=== PATIENT | male | born 1945 | race Caucasian/White ===

== ENCOUNTER 2016-11-09 10:37 | Inpatient (IN) | payer MEDICARE ==
[2016-11-09] MEDS ORDERED: Sodium Chloride 0.9% 10 ML Syringe FLUSH PRN (10:39)
[2016-11-09] MEDS ORDERED: Aspirin 81 MG Tab.Chew PO ONE (10:39)
[2016-11-09] MEDS ORDERED: Sodium Chloride 0.9% 2.5 ML Syringe FLUSH PRN (10:39)
[2016-11-09] MEDS ORDERED: Famotidine 20 MG/2 ML SDV IVPUSH ONE (10:39)
[2016-11-09] MEDS ORDERED: Sodium Chloride 0.9% 1,000 ML IV ONE (10:41)
--- NOTE | 2016-11-09 10:41 | EDM.PDOC ---
ED HPI GENERAL MEDICAL PROBLEM - General Stated Complaint: OXYGEN NEEDED Time Seen by Provider: 11/09/16 10:41 Source of Information: Reports: Patient History Limitations: Reports: No Limitations - History of Present Illness INITIAL COMMENTS - FREE TEXT/NARRATIVE: HISTORY AND PHYSICAL: []71-year-old male presenting with pressure to his chest and shortness of breath for the last 2-3 days. History of Present Illness: []2-3 days patient has felt short of breath even increasing. He has been on oxygen at home at 4 L. He has had pneumonia in the past and feels that's what is happening now. He is speaking in full sentences. Slightly diaphoretic and O2 at home at 4L. SAO2 is 80% when he arrived. He has history of COPD, pneumonia. History of congestive heart failure. 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 Past medical history: As per history of present illness and as reviewed below otherwise noncontributory. Surgical history: As per history of present illness and as reviewed below otherwise noncontributory. Social history: No reported history of drug or alcohol abuse. Family history: As per history of present illness and as reviewed below otherwise noncontributory. Physical exam: Alert and oriented speaking in full sentences. Coughing up copious amounts of phlegm . HEENT: Atraumatic, normocehpalic, pupils reactive, negative for conjunctival pallor or scleral icterus, mucous membranes moist, throat clear, neck supple, nontender, trachea midline. Lungs: Coarse to auscultation, breath sounds equal bilaterally, very diminished . chest tender "from coughing". Heart: S1S2, regular, negative for clicks, rubs, or JVD. Abdomen: Soft, nondistended, nontender. Negative for masses or hepatossplenmegaly. Negative for costovertebral tenderness. Pelvis: Stable nontender. Genitourinary: Deferred. Rectal: Deferred Extremities: Atraumatic, negative for cords or calf pain. No peripheral edema. Neurovascular unremarkable. Neuro: Awake, alert, oriented. Cranial nerves II through XII unremarkable. Cerebellum unremarkable. Motor and sensory unremarkable throughout. Exam nonfocal. Discussed with patient his hypoxemia the pneumonia diagnosis and plan for admission he is agreeable to this course of action Have discussed this case with Dr. Estrada who has accepted this patient for observation Diagnostics: [Chest pain protocol ] Therapeutics: [DuoNeb] Impression: [Right-sided perihilar pneumonia Hypoxemia] Plan: []Admit Definitive disposition and diagnosis as appropriate pending reevaluation and review of above. Onset: Gradual Duration: Day(s): (2-3), Getting Worse, Heavy Location: Reports: Chest Quality: Reports: Pressure Severity: Moderate - Related Data Allergies Allergy/AdvReac Type Severity Reaction Status Date / Time morphine Allergy Hives Verified 11/09/16 10:44 Penicillins Allergy Hives Verified 11/09/16 10:44 Home Meds: Home Meds Cephalexin 500 mg PO QID 11/09/16 [History] Furosemide 40 mg PO DAILY 11/09/16 [History] Lisinopril 10 mg PO DAILY 11/09/16 [History] QUEtiapine Fumarate [Quetiapine Fumarate] 200 mg PO DAILY 11/09/16 [History] Tamsulosin [Flomax] 0.4 mg PO ONETIME 11/09/16 [History] ED ROS GENERAL - Review of Systems Review Of Systems: ROS reveals no pertinent complaints other than HPI. ED EXAM, GENERAL - Physical Exam Exam: See Below (see dictation) EKG INTERPRETATION EKG Date: 11/09/16 Rhythm: NSR Comparison: NA - No Prior EKG Course - Vital Signs Last Recorded V/S: Last Vital Signs Temp 36.4 C 11/09/16 10:48 Pulse 70 11/09/16 11:03 Resp 18 11/09/16 11:03 BP 133/67 11/09/16 11:03 Pulse Ox 95 11/09/16 11:03 - Orders/Labs/Meds Orders: Active Orders 24 hr Category Date Time Status Cardiac Monitoring [RC] . DIRECTED Care 11/09/16 10:39 Active EKG Documentation Completion [RC] STAT Care 11/09/16 10:39 Active Oxygen Therapy [RC] ASDIRECTED Care 11/09/16 10:39 Active RT Aerosol Therapy [RC] ASDIRECTED Care 11/09/16 11:05 Active Chest 1V Frontal [CR] Stat Exams 11/09/16 10:39 Taken B-TYPE NATRIURETIC PEPTIDE,BNP [CHEM] Stat Lab 11/09/16 11:30 Ordered UA W/MICROSCOPIC [URIN] Stat Lab 11/09/16 10:39 Uncollected Sodium Chloride 0.9% [Normal Saline] 1,000 ml Med 11/09/16 10:41 Active IV STAT Sodium Chloride 0.9% [Saline Flush] Med 11/09/16 10:39 Active 10 ml FLUSH ASDIRECTED PRN Sodium Chloride 0.9% [Saline Flush] Med 11/09/16 10:39 Active 2.5 ml FLUSH ASDIRECTED PRN Saline Lock Insert [OM.PC] Stat Oth 11/09/16 10:39 Ordered Medication Orders Sodium Chloride (Normal Saline) 1,000 mls @ 999 mls/hr IV STAT ONE Stop: 11/09/16 11:41 Last Admin: 11/09/16 10:56 Dose: 999 mls/hr Sodium Chloride (Saline Flush) 10 ml FLUSH ASDIRECTED PRN PRN Reason: Keep Vein Open Last Admin: 11/09/16 10:56 Dose: 10 ml Sodium Chloride (Saline Flush) 2.5 ml FLUSH ASDIRECTED PRN PRN Reason: Keep Vein Open Last Admin: 11/09/16 10:56 Dose: 2.5 ml Labs: Laboratory Tests 11/09/16 11/09/16 11/09/16 Range/Units 10:35 10:35 10:35 WBC 9.88 (4.0-11.0) K/uL RBC 4.87 (4.50-5.90) M/uL Hgb 15.6 (13.0-17.0) g/dL Hct 47.4 (38.0-50.0) % MCV 97.3 (80.0-98.0) fL MCH 32.0 (27.0-32.0) pg MCHC 32.9 (31.0-37.0) g/dL RDW Std Deviation 52.2 (28.0-62.0) fl RDW Coeff of Gregory 15 (11.0-15.0) % Plt Count 178 (150-400) K/uL MPV 10.80 (7.40-12.00) fL Neut % (Auto) 78.5 (48.0-80.0) % Lymph % (Auto) 11.7 L (16.0-40.0) % Kleberg % (Auto) 8.6 (0.0-15.0) % Eos % (Auto) 0.9 (0.0-7.0) % Baso % (Auto) 0.3 (0.0-1.5) % Neut # (Auto) 7.8 H (1.4-5.7) K/uL Lymph # (Auto) 1.2 (0.6-2.4) K/uL Kleberg # (Auto) 0.9 H (0.0-0.8) K/uL Eos # (Auto) 0.1 (0.0-0.7) K/uL Baso # (Auto) 0.0 (0.0-0.1) K/uL Nucleated RBC % 0.0 /100WBC Nucleated RBCs # 0 K/uL Sodium 137 (136-146) mmol/L Potassium 4.4 (3.5-5.1) mmol/L Chloride 99 (98-110) mmol/L Carbon Dioxide 30 (21-31) mmol/L BUN 13 (6.0-23.0) mg/dL Creatinine 1.0 (0.6-1.5) mg/dL Est Cr Clr Drug Dosing 71.99 mL/min Estimated GFR (MDRD) > 60.0 ml/min Glucose 112 H (60-110) mg/dL Calcium 8.7 L (8.8-10.8) mg/dL Total Bilirubin 0.5 (0.1-1.5) mg/dL AST 21 (5-40) IU/L ALT 19 (8-54) IU/L Alkaline Phosphatase 79 (40-150) Troponin I < 0.10 (0.0-0.29) NG/ML Total Protein 7.5 (6.0-8.0) g/dL Albumin 4.1 (3.4-4.8) g/dL Globulin 3.4 (2.0-3.5) g/dL Albumin/Globulin Ratio 1.2 L (1.3-2.8) Amylase 50 (10-90) U/L Lipase 13 (7-80) U/L Meds: Medications Generic Name Dose Route Start Last Admin Trade Name Freq PRN Reason Stop Dose Admin Sodium Chloride 1,000 mls @ 999 mls/hr 11/09/16 10:41 11/09/16 10:56 Normal Saline IV 11/09/16 11:41 999 mls/hr STAT ONE Administration Sodium Chloride 10 ml 11/09/16 10:39 11/09/16 10:56 Saline Flush FLUSH 10 ml ASDIRECTED PRN Administration Keep Vein Open Sodium Chloride 2.5 ml 11/09/16 10:39 11/09/16 10:56 Saline Flush FLUSH 2.5 ml ASDIRECTED PRN Administration Keep Vein Open Discontinued Medications Generic Name Dose Route Start Last Admin Trade Name Katie PRN Reason Stop Dose Admin Albuterol/Ipratropium 3 ml 11/09/16 11:05 11/09/16 11:13 Duoneb 3.0-0.5 Mg/3 Ml NEB 11/09/16 11:06 3 ml ONETIME ONE Administration Aspirin 324 mg 11/09/16 10:39 11/09/16 10:57 Aspirin PO 11/09/16 10:40 324 mg ONETIME ONE Administration Famotidine 20 mg 11/09/16 10:39 11/09/16 10:56 Pepcid IVPUSH 11/09/16 10:40 20 mg ONETIME ONE Administration Departure - Departure Time of Disposition: 11:50 Disposition: Refer to Observation Condition: Good Clinical Impression: Hypoxemia - Discharge Information Instructions: Shortness of Breath, [id number] - My Orders Last 24 Hours: My Active Orders 11/09/16 10:39 Cardiac Monitoring [RC] . DIRECTED EKG Documentation Completion [RC] STAT Oxygen Therapy [RC] ASDIRECTED Chest 1V Frontal [CR] Stat UA W/MICROSCOPIC [URIN] Stat Sodium Chloride 0.9% [Saline Flush] 10 ml FLUSH ASDIRECTED PRN Sodium Chloride 0.9% [Saline Flush] 2.5 ml FLUSH ASDIRECTED PRN Saline Lock Insert [OM.PC] Stat 11/09/16 10:41 Sodium Chloride 0.9% [Normal Saline] 1,000 ml IV STAT 11/09/16 11:05 RT Aerosol Therapy [RC] ASDIRECTED 11/09/16 11:30 B-TYPE NATRIURETIC PEPTIDE,BNP [CHEM] Stat - Assessment/Plan Last 24 Hours: My Active Orders 11/09/16 10:39 Cardiac Monitoring [RC] . DIRECTED EKG Documentation Completion [RC] STAT Oxygen Therapy [RC] ASDIRECTED Chest 1V Frontal [CR] Stat UA W/MICROSCOPIC [URIN] Stat Sodium Chloride 0.9% [Saline Flush] 10 ml FLUSH ASDIRECTED PRN Sodium Chloride 0.9% [Saline Flush] 2.5 ml FLUSH ASDIRECTED PRN Saline Lock Insert [OM.PC] Stat 11/09/16 10:41 Sodium Chloride 0.9% [Normal Saline] 1,000 ml IV STAT 11/09/16 11:05 RT Aerosol Therapy [RC] ASDIRECTED 11/09/16 11:30 B-TYPE NATRIURETIC PEPTIDE,BNP [CHEM] Stat
[2016-11-09] MEDS ORDERED: Albuterol/Ipratropium 3.0-0.5 MG/3 ML Neb Soln NEB ONE (11:05)
[2016-11-09 11:20] LABS: CHLORIDE,CL 99 mmol/L (98-110); SODIUM,NA 137 mmol/L (136-146)
[2016-11-09] MEDS ORDERED: Azithromycin 500 MG in Sodium Chloride 0.9% 250 ML IV ONE (11:33)
[2016-11-09] MEDS ORDERED: Levofloxacin/Dextrose 5%-Water 750 MG in Premix Bag 1 BAG IV ONE (11:38)
[2016-11-09] MEDS ORDERED: Azithromycin 250 MG Tab PO ONE (11:46)
--- NOTE | 2016-11-09 11:59 | CR ---
Portable chest There is mild cardio megaly. There is vascular engorgement today compared to prior examination of Se ptember [id number]. There may be a small left pleural effusion. Impression: Cardiomegaly with vascular encouragement and likely pleural effusion consistent with con gestive heart failure
[2016-11-09] MEDS ORDERED: Albuterol/Ipratropium 3.0-0.5 MG/3 ML Neb Soln NEB PRN (12:05)
[2016-11-09] MEDS ORDERED: Temazepam 15 MG Cap PO PRN (12:05)
[2016-11-09] MEDS ORDERED: Morphine 2 MG/ML Syringe IVPUSH PRN (12:05)
[2016-11-09] MEDS ORDERED: oxyCODONE 5 MG Tab PO PRN (12:05)
[2016-11-09] MEDS ORDERED: Acetaminophen 325 MG Tab PO PRN (12:05)
[2016-11-09] MEDS ORDERED: Ondansetron 4 MG Tab.DIS PO PRN (12:05)
[2016-11-09] MEDS ORDERED: Docusate Sodium 100 MG Cap PO PRN (12:05)
[2016-11-09] MEDS ORDERED: Tamsulosin 0.4 MG Cap.ER PO SCH (12:15)
[2016-11-09] MEDS ORDERED: Levofloxacin/Dextrose 5%-Water 500 MG in Premix Bag 1 BAG IV SCH (12:15)
[2016-11-09] MEDS: Nicotine 21 MG/24 Hr Patch TRDERM SCH (13:52)
[2016-11-09] MEDS ORDERED: Levofloxacin/Dextrose 5%-Water 750 MG in Premix Bag 1 BAG IV SCH (13:53)
[2016-11-09] MEDS: Sodium Chloride 0.9% 1,000 ML IV SCH (14:35)
--- NOTE | 2016-11-09 18:34 | PCM.HP ---
<Hong Sullivan Z - Last Filed: 11/09/16 19:13> H&P History of Present Illness - General Date of Service: 11/09/16 Admit Problem/Dx: Admission Diagnosis/Problem Admission Diagnosis/Problem Hypoxemia - History of Present Illness Initial Comments - Free Text/Narative: 72-year-old gentleman who is presenting secondary to acute shortness of breath for the past couple of days. Patient states that he is having further difficulties in terms of breathing he is on home oxygen 4 L. He thought that he was getting slightly feverish throughout the day and became worried as he has had a past medical history of pneumonia . Currently assessing the patient at the present moment he did not look to be in any acute distress. However, he did insist that from a respiratory dysfunction he felt it was as if he was getting another pneumonia. He states that he does have pneumonia at least once a year. At his previous bout of pneumonia resulted in a MRSA infection. He does have a past medical history of chronic obstructive pulmonary disease or which she is on long-term inhaler. Patient also has a history of congestive heart failure however he is not fluid retaining at the present moment. Patient is afebrile, normotensive, not tachycardic. She is not complaining of any nausea vomiting diarrhea or constipation Onset of Symptoms: Reports: Gradual - Related Data Allergies/Adverse Reactions: Allergies Allergy/AdvReac Type Severity Reaction Status Date / Time morphine Allergy Hives Verified 11/09/16 10:44 Penicillins Allergy Hives Verified 11/09/16 10:44 Home Medications: Home Meds Albuterol [IJD: Ventolin HFA] 2 inh IH Q4H PRN 11/09/16 [History] Aspirin 325 mg PO DAILY 11/09/16 [History] Budesonide/Formoterol [Symbicort 160-4.5 MCG] 2 inh IH BID 11/09/16 [History] Furosemide 60 mg PO DAILY 11/09/16 [History] Lisinopril 10 mg PO DAILY 11/09/16 [History] QUEtiapine Fumarate [Quetiapine Fumarate] 200 mg PO BEDTIME 11/09/16 [History] Tamsulosin [Flomax] 0.4 mg PO DAILY 11/09/16 [History] Past Medical History Cardiovascular History: Reports: Heart Failure, Hypertension Respiratory History: Reports: COPD Gastrointestinal History: Reports: Other (See Below) Other Gastrointestinal History: Appendicitis Neurological History: Reports: Brain Injury - Past Surgical History GI Surgical History: Reports: Other (See Below) Other GI Surgeries/Procedures: Appendectomy Social & Family History - Family History HEENT: Reports: Cataract Cardiac: Reports: Other (See Below) Other Cardiac Family History: stroke Respiratory: Reports: COPD Musculoskeletal: Reports: Arthritis Neurological: Reports: TIA Endocrine/Metabolic: Reports: Diabetes, type II - Tobacco Use Smoking Status *Q: Current Every Day Smoker Years of Tobacco use: 60 Packs/Tins Daily: 0.2 - Caffeine Use Caffeine Use: Reports: Soda - Recreational Drug Use Recreational Drug Use: No H&P Review of Systems - Review of Systems: Review Of Systems: ROS reveals no pertinent complaints other than HPI. Exam - Exam Exam: See Below - Vital Signs Vital Signs: Last Vital Signs Temp 36.2 C 11/09/16 16:00 Pulse 77 11/09/16 16:00 Resp 20 11/09/16 16:00 BP 149/68 H 11/09/16 16:00 Pulse Ox 94 L 11/09/16 16:00 Weight: 115.921 kg - Patient Data Lab Results Last 24 hrs: Laboratory Results - last 24 hr 11/09/16 11/09/16 Range/Units 11:50 14:50 Lactate 0.9 (0.20-2.00) mmol/L Urine Color YELLOW Urine Appearance CLEAR Urine pH 6.0 (5.0-8.0) Ur Specific [place] >= 1.030 (1.001-1.035) Urine Protein NEGATIVE (NEGATIVE) mg/dL Urine Glucose (UA) NEGATIVE (NEGATIVE) mg/dL Urine Ketones NEGATIVE (NEGATIVE) mg/dL Urine Occult Blood NEGATIVE (NEGATIVE) Urine Nitrite NEGATIVE (NEGATIVE) Urine Bilirubin NEGATIVE (NEGATIVE) Urine Urobilinogen 0.2 (<2.0) EU/dL Ur Leukocyte Esterase NEGATIVE (NEGATIVE) Urine RBC 0-1 (0-2/HPF) Urine WBC 1-3 (0-5/HPF) Ur Epithelial Cells OCCASIONAL (NONE-FEW) Urine Bacteria FEW (NEGATIVE) Urine Mucus LIGHT (NONE-MOD) Result Diagrams: 11/09/16 10:35 11/09/16 10:35 Loi Results Last 24 hrs: Microbiology 11/09/16 12:32 Gram Stain - Final Sputum - Expectorated 11/09/16 12:00 Anaerobic Blood Culture - Final Blood - Venous - Lab Draw *Q Meaningful Use (ADM) - VTE *Q VTE Criteria *Q: - Stroke *Q Stroke Criteria *Q: - AMI *Q AMI Criteria *Q: Problem List Initiated/Reviewed/Updated: Yes Orders Last 24hrs: Active Orders 24 hr Category Date Time Status Patient Status [ADT] Routine ADT 11/09/16 12:05 Active Antiembolic Devices [RC] PER UNIT ROUTINE Care 11/09/16 12:08 Active Overnight Pulse Oximetry [RC] Click To Edit Care 11/09/16 12:50 Active Oxygen Therapy [RC] PRN Care 11/09/16 12:05 Active RT Aerosol Therapy [RC] ASDIRECTED Care 11/09/16 12:11 Active RT Aerosol Therapy [RC] ASDIRECTED Care 11/09/16 18:13 Active Up With Assistance [RC] ASDIRECTED Care 11/09/16 12:05 Active VTE/DVT Education [RC] PER UNIT ROUTINE Care 11/09/16 12:05 Active Vaccines to be Administered [RC] PER UNIT ROUTINE Care 11/09/16 12:11 Active Vital Signs [RC] Q4H Care 11/09/16 12:05 Active 2 Gram Sodium Diet [DIET] Diet 11/09/16 Dinner Active CBC WITH AUTO DIFF [HEME] AM Lab 11/10/16 05:11 Ordered COMPREHENSIVE METABOLIC PN,CMP [CHEM] AM Lab 11/10/16 05:11 Ordered CULTURE SPUTUM + SMEAR [RM] Routine Lab 11/09/16 12:32 Results Acetaminophen [Tylenol] Med 11/09/16 12:05 Active 650 mg PO Q4H PRN Albuterol/Ipratropium [DuoNeb 3.0-0.5 MG/3 ML] Med 11/09/16 18:00 Active 3 ml NEB Q4HRRT Budesonide [Pulmicort] Med 11/09/16 21:00 Ordered 0.5 mg NEB BIDRT Docusate Sodium [Colace] Med 11/09/16 12:05 Active 100 mg PO BID PRN Furosemide [Lasix] Med 11/10/16 09:00 Active 40 mg PO DAILY Levofloxacin/Dextrose 5%-Water [Levaquin in D5W 750 MG/ Med 11/10/16 11:00 Active 150 ML] 750 mg Premix Bag 1 bag IV Q24H Lisinopril [Prinivil] Med 11/10/16 09:00 Active 10 mg PO DAILY Morphine Med 11/09/16 12:05 Active 2 mg IVPUSH Q2H PRN Nicotine [Habitrol] Med 11/09/16 13:00 Active 21 mg TRDERM DAILY Ondansetron [Zofran ODT] Med 11/09/16 12:05 Active 4 mg PO Q4H PRN QUEtiapine [SEROquel] Med 11/10/16 21:00 Active 200 mg PO BEDTIME Sodium Chloride 0.9% [Normal Saline] 1,000 ml Med 11/09/16 12:15 Active IV ASDIRECTED Tamsulosin [Flomax] Med 11/09/16 21:00 Active 0.4 mg PO BEDTIME Temazepam [Restoril] Med 11/09/16 12:05 Active 15 mg PO BEDTIME PRN oxyCODONE Med 11/09/16 12:05 Active 5 mg PO Q4H PRN GM Immunization Reflex [OM.PC] Click To Edit Oth 11/09/16 12:05 Ordered Pulse Oximetry Continuous Monitoring [OM.PC] Routine Oth 11/09/16 12:50 Ordered Sequential Compression Device [OM.PC] Per Unit Routine Oth 11/09/16 12:07 Ordered Resuscitation Status Routine Resus Stat 11/09/16 12:05 Ordered Medication Orders Acetaminophen (Tylenol) 650 mg PO Q4H PRN PRN Reason: Pain (Mild 1-3)/fever Albuterol/Ipratropium (Duoneb 3.0-0.5 Mg/3 Ml) 3 ml NEB Q4HRRT [facility] Budesonide (Pulmicort) 0.5 mg NEB BIDRT [facility] Docusate Sodium (Colace) 100 mg PO BID PRN PRN Reason: Constipation Furosemide (Lasix) 40 mg PO DAILY [facility] Sodium Chloride (Normal Saline) 1,000 mls @ 100 mls/hr IV ASDIRECTED [facility] Last Admin: 11/09/16 14:35 Dose: 100 mls/hr Levofloxacin/Dextrose 750 mg/ (Premix) 150 mls @ 150 mls/hr IV Q24H [facility] Lisinopril (Prinivil) 10 mg PO DAILY [facility] Morphine Sulfate (Morphine) 2 mg IVPUSH Q2H PRN PRN Reason: Pain (severe 7-10) Stop: 11/10/16 12:08 Nicotine (Habitrol) 21 mg TRDERM DAILY [facility] Last Admin: 11/09/16 13:52 Dose: Ondansetron HCl (Zofran Odt) 4 mg PO Q4H PRN PRN Reason: nausea, able to take PO Oxycodone HCl (Oxycodone) 5 mg PO Q4H PRN PRN Reason: Pain (moderate 4-6) Quetiapine Fumarate (Seroquel) 200 mg PO BEDTIME [facility] Sodium Chloride (Saline Flush) 10 ml FLUSH ASDIRECTED PRN PRN Reason: Keep Vein Open Last Admin: 11/09/16 10:56 Dose: 10 ml Sodium Chloride (Saline Flush) 2.5 ml FLUSH ASDIRECTED PRN PRN Reason: Keep Vein Open Last Admin: 11/09/16 10:56 Dose: 2.5 ml Tamsulosin HCl (Flomax) 0.4 mg PO BEDTIME [facility] Temazepam (Restoril) 15 mg PO BEDTIME PRN PRN Reason: Sleep Assessment/Plan Comment:: Assessment and plan: #1. Shortness of breath tachypnea secondary to possibly community-acquired pneumonia versus atypical pneumonia -Antibiotics azithromycin and Levaquin -Continue to watch the patient's CBC as well as sputum and blood cultures 2. Congestive heart failure versus COPD exacerbation -Continue patient's home dose of lisinopril patient likely not in an acute congestive heart failure state. -Patient to receive DuoNeb's RT every 4 while awake as well as Pulmicort twice a day -Oxygen therapy as needed titrate per patient's vital signs and respiratory status -Continue to assess the patient's vitals per unit protocol Patient under observation status less than 2 midnights - <Rodger Estrada - Last Filed: 11/10/16 09:24> H&P History of Present Illness - General Admit Problem/Dx: Admission Diagnosis/Problem Admission Diagnosis/Problem Hypoxemia I performed a history and physical examination of the patient and I have discussed the management with the resident. I have reviewed the residents note and agree with the documented findings and plan of care. Exam - Vital Signs Vital Signs: Last Vital Signs Temp 36.7 C 11/10/16 08:00 Pulse 81 11/10/16 08:00 Resp 22 H 11/10/16 08:00 BP 134/63 11/10/16 08:51 Pulse Ox 95 11/10/16 08:00 - Patient Data Lab Results Last 24 hrs: Laboratory Results - last 24 hr 11/09/16 11/09/16 11/10/16 Range/Units 11:50 14:50 04:23 WBC 8.07 (4.0-11.0) K/uL RBC 4.64 (4.50-5.90) M/uL Hgb 14.7 (13.0-17.0) g/dL Hct 45.9 (38.0-50.0) % MCV 98.9 H (80.0-98.0) fL MCH 31.7 (27.0-32.0) pg MCHC 32.0 (31.0-37.0) g/dL RDW Std Deviation 51.7 (28.0-62.0) fl RDW Coeff of Gregory 15 (11.0-15.0) % Plt Count 146 L (150-400) K/uL MPV 10.40 (7.40-12.00) fL Neut % (Auto) 80.5 H (48.0-80.0) % Lymph % (Auto) 10.5 L (16.0-40.0) % [place] % (Auto) 8.2 (0.0-15.0) % Eos % (Auto) 0.6 (0.0-7.0) % Baso % (Auto) 0.2 (0.0-1.5) % Neut # (Auto) 6.5 H (1.4-5.7) K/uL Lymph # (Auto) 0.9 (0.6-2.4) K/uL [place] # (Auto) 0.7 (0.0-0.8) K/uL Eos # (Auto) 0.1 (0.0-0.7) K/uL Baso # (Auto) 0.0 (0.0-0.1) K/uL Lactate 0.9 (0.20-2.00) mmol/L Sodium (136-146) mmol/L Potassium (3.5-5.1) mmol/L Chloride (98-110) mmol/L Carbon Dioxide (21-31) mmol/L BUN (6.0-23.0) mg/dL Creatinine (0.6-1.5) mg/dL Est Cr Clr Drug Dosing mL/min Estimated GFR (MDRD) ml/min Glucose (60-110) mg/dL Calcium (8.8-10.8) mg/dL Total Bilirubin (0.1-1.5) mg/dL AST (5-40) IU/L ALT (8-54) IU/L Alkaline Phosphatase (40-150) Total Protein (6.0-8.0) g/dL Albumin (3.4-4.8) g/dL Globulin (2.0-3.5) g/dL Albumin/Globulin Ratio (1.3-2.8) Urine Color YELLOW Urine Appearance CLEAR Urine pH 6.0 (5.0-8.0) Ur Specific [place] >= 1.030 (1.001-1.035) Urine Protein NEGATIVE (NEGATIVE) mg/dL Urine Glucose (UA) NEGATIVE (NEGATIVE) mg/dL Urine Ketones NEGATIVE (NEGATIVE) mg/dL Urine Occult Blood NEGATIVE (NEGATIVE) Urine Nitrite NEGATIVE (NEGATIVE) Urine Bilirubin NEGATIVE (NEGATIVE) Urine Urobilinogen 0.2 (<2.0) EU/dL Ur Leukocyte Esterase NEGATIVE (NEGATIVE) Urine RBC 0-1 (0-2/HPF) Urine WBC 1-3 (0-5/HPF) Ur Epithelial Cells OCCASIONAL (NONE-FEW) Urine Bacteria FEW (NEGATIVE) Urine Mucus LIGHT (NONE-MOD) 11/10/16 Range/Units 04:23 WBC (4.0-11.0) K/uL RBC (4.50-5.90) M/uL Hgb (13.0-17.0) g/dL Hct (38.0-50.0) % MCV (80.0-98.0) fL MCH (27.0-32.0) pg MCHC (31.0-37.0) g/dL RDW Std Deviation (28.0-62.0) fl RDW Coeff of Gregory (11.0-15.0) % Plt Count (150-400) K/uL MPV (7.40-12.00) fL Neut % (Auto) (48.0-80.0) % Lymph % (Auto) (16.0-40.0) % [place] % (Auto) (0.0-15.0) % Eos % (Auto) (0.0-7.0) % Baso % (Auto) (0.0-1.5) % Neut # (Auto) (1.4-5.7) K/uL Lymph # (Auto) (0.6-2.4) K/uL [place] # (Auto) (0.0-0.8) K/uL Eos # (Auto) (0.0-0.7) K/uL Baso # (Auto) (0.0-0.1) K/uL Lactate (0.20-2.00) mmol/L Sodium 136 (136-146) mmol/L Potassium 4.6 (3.5-5.1) mmol/L Chloride 99 (98-110) mmol/L Carbon Dioxide 31 (21-31) mmol/L BUN 11 (6.0-23.0) mg/dL Creatinine 0.9 (0.6-1.5) mg/dL Est Cr Clr Drug Dosing 80.18 mL/min Estimated GFR (MDRD) > 60.0 ml/min Glucose 108 (60-110) mg/dL Calcium 8.3 L (8.8-10.8) mg/dL Total Bilirubin 0.4 (0.1-1.5) mg/dL AST 23 (5-40) IU/L ALT 20 (8-54) IU/L Alkaline Phosphatase 71 (40-150) Total Protein 7.0 (6.0-8.0) g/dL Albumin 4.1 (3.4-4.8) g/dL Globulin 2.9 (2.0-3.5) g/dL Albumin/Globulin Ratio 1.4 (1.3-2.8) Urine Color Urine Appearance Urine pH (5.0-8.0) Ur Specific [place] (1.001-1.035) Urine Protein (NEGATIVE) mg/dL Urine Glucose (UA) (NEGATIVE) mg/dL Urine Ketones (NEGATIVE) mg/dL Urine Occult Blood (NEGATIVE) Urine Nitrite (NEGATIVE) Urine Bilirubin (NEGATIVE) Urine Urobilinogen (<2.0) EU/dL Ur Leukocyte Esterase (NEGATIVE) Urine RBC (0-2/HPF) Urine WBC (0-5/HPF) Ur Epithelial Cells (NONE-FEW) Urine Bacteria (NEGATIVE) Urine Mucus (NONE-MOD) Result Diagrams: 11/10/16 04:23 11/10/16 04:23 Loi Results Last 24 hrs: Microbiology 11/09/16 12:32 Gram Stain - Final Sputum - Expectorated 11/09/16 12:00 Anaerobic Blood Culture - Final Blood - Venous - Lab Draw *Q Meaningful Use (ADM) - VTE *Q VTE Criteria *Q: - Stroke *Q Stroke Criteria *Q: - AMI *Q AMI Criteria *Q: Orders Last 24hrs: Active Orders 24 hr Category Date Time Status Patient Status [ADT] Routine ADT 11/09/16 12:05 Active Antiembolic Devices [RC] PER UNIT ROUTINE Care 11/09/16 12:08 Active Overnight Pulse Oximetry [RC] Click To Edit Care 11/09/16 12:50 Active Oxygen Therapy [RC] PRN Care 11/09/16 12:05 Active RT Aerosol Therapy [RC] ASDIRECTED Care 11/09/16 12:11 Active RT Aerosol Therapy [RC] ASDIRECTED Care 11/09/16 18:13 Active Up With Assistance [RC] ASDIRECTED Care 11/09/16 12:05 Active VTE/DVT Education [RC] PER UNIT ROUTINE Care 11/09/16 12:05 Active Vaccines to be Administered [RC] PER UNIT ROUTINE Care 11/09/16 12:11 Active Vital Signs [RC] Q4H Care 11/09/16 12:05 Active 2 Gram Sodium Diet [DIET] Diet 11/09/16 Dinner Active CULTURE SPUTUM + SMEAR [RM] Routine Lab 11/09/16 12:32 Results VANCOMYCIN TROUGH [CHEM] Routine Lab 11/11/16 19:30 Ordered Acetaminophen [Tylenol] Med 11/09/16 12:05 Active 650 mg PO Q4H PRN Albuterol/Ipratropium [DuoNeb 3.0-0.5 MG/3 ML] Med 11/09/16 18:00 Active 3 ml NEB Q4HRRT Budesonide [Pulmicort] Med 11/09/16 21:00 Active 0.5 mg NEB BIDRT Docusate Sodium [Colace] Med 11/09/16 12:05 Active 100 mg PO BID PRN Furosemide [Lasix] Med 11/10/16 09:00 Active 40 mg PO DAILY Levofloxacin/Dextrose 5%-Water [Levaquin in D5W 750 MG/ Med 11/10/16 11:00 Active 150 ML] 750 mg Premix Bag 1 bag IV Q24H Lisinopril [Prinivil] Med 11/10/16 09:00 Active 10 mg PO DAILY Morphine Med 11/09/16 12:05 Active 2 mg IVPUSH Q2H PRN Nicotine [Habitrol] Med 11/09/16 13:00 Active 21 mg TRDERM DAILY Ondansetron [Zofran ODT] Med 11/09/16 12:05 Active 4 mg PO Q4H PRN QUEtiapine [SEROquel] Med 11/09/16 21:24 Active 200 mg PO BEDTIME Sodium Chloride 0.9% [Normal Saline] 1,000 ml Med 11/09/16 12:15 Active IV ASDIRECTED Tamsulosin [Flomax] Med 11/09/16 21:00 Active 0.4 mg PO BEDTIME Temazepam [Restoril] Med 11/09/16 12:05 Active 15 mg PO BEDTIME PRN Vancomycin 1,500 mg Med 11/10/16 08:30 Active Sodium Chloride 0.9% [Normal Saline] 500 ml IV Q12H Vancomycin Pharmacy to Dose [Pharmacy to Dose - Med 11/10/16 08:15 Active Vancomycin] 1 dose .XX ASDIRECTED oxyCODONE Med 11/09/16 12:05 Active 5 mg PO Q4H PRN GM Immunization Reflex [OM.PC] Click To Edit Oth 11/09/16 12:05 Ordered Pulse Oximetry Continuous Monitoring [OM.PC] Routine Oth 11/09/16 12:50 Ordered Sequential Compression Device [OM.PC] Per Unit Routine Oth 11/09/16 12:07 Ordered Resuscitation Status Routine Resus Stat 11/09/16 12:05 Ordered Medication Orders Acetaminophen (Tylenol) 650 mg PO Q4H PRN PRN Reason: Pain (Mild 1-3)/fever Albuterol/Ipratropium (Duoneb 3.0-0.5 Mg/3 Ml) 3 ml NEB Q4HRRT [facility] Last Admin: 11/10/16 06:16 Dose: 3 ml Admin: 11/10/16 02:11 Dose: 3 ml Admin: 11/09/16 22:34 Dose: 3 ml Admin: 11/09/16 19:49 Dose: 3 ml Budesonide (Pulmicort) 0.5 mg NEB BIDRT [facility] Last Admin: 11/10/16 06:16 Dose: 0.5 mg Admin: 11/09/16 20:06 Dose: 0.5 mg Docusate Sodium (Colace) 100 mg PO BID PRN PRN Reason: Constipation Furosemide (Lasix) 40 mg PO DAILY [facility] Last Admin: 11/10/16 08:50 Dose: 40 mg Sodium Chloride (Normal Saline) 1,000 mls @ 100 mls/hr IV ASDIRECTED [facility] Last Admin: 11/10/16 00:40 Dose: 100 mls/hr Infusion: 11/10/16 00:35 Dose: 100 mls/hr Admin: 11/09/16 14:35 Dose: 100 mls/hr Levofloxacin/Dextrose 750 mg/ (Premix) 150 mls @ 150 mls/hr IV Q24H [facility] Vancomycin HCl 1,500 mg/ (Sodium Chloride) 500 mls @ 250 mls/hr IV Q12H [facility] Last Admin: 11/10/16 08:58 Dose: 250 mls/hr Lisinopril (Prinivil) 10 mg PO DAILY [facility] Last Admin: 11/10/16 08:51 Dose: 10 mg Morphine Sulfate (Morphine) 2 mg IVPUSH Q2H PRN PRN Reason: Pain (severe 7-10) Stop: 11/10/16 12:08 Nicotine (Habitrol) 21 mg TRDERM DAILY [facility] Last Admin: 11/10/16 08:51 Dose: 21 mg Admin: 11/09/16 13:52 Dose: Ondansetron HCl (Zofran Odt) 4 mg PO Q4H PRN PRN Reason: nausea, able to take PO Oxycodone HCl (Oxycodone) 5 mg PO Q4H PRN PRN Reason: Pain (moderate 4-6) Quetiapine Fumarate (Seroquel) 200 mg PO BEDTIME [facility] Last Admin: 11/09/16 21:45 Dose: 200 mg Sodium Chloride (Saline Flush) 10 ml FLUSH ASDIRECTED PRN PRN Reason: Keep Vein Open Last Admin: 11/09/16 10:56 Dose: 10 ml Sodium Chloride (Saline Flush) 2.5 ml FLUSH ASDIRECTED PRN PRN Reason: Keep Vein Open Last Admin: 11/09/16 10:56 Dose: 2.5 ml Tamsulosin HCl (Flomax) 0.4 mg PO BEDTIME [facility] Last Admin: 11/09/16 21:43 Dose: 0.4 mg Temazepam (Restoril) 15 mg PO BEDTIME PRN PRN Reason: Sleep Vancomycin HCl (Pharmacy To Dose - Vancomycin) 1 dose .XX ASDIRECTED [facility]
[2016-11-09] MEDS: Albuterol/Ipratropium 3.0-0.5 MG/3 ML Neb Soln NEB SCH ×2 (19:49→22:34)
[2016-11-09] MEDS: Budesonide 0.5 MG/2 ML Neb Susp NEB SCH (20:06)
[2016-11-09] MEDS: Tamsulosin 0.4 MG Cap.ER PO SCH (21:43)
[2016-11-09] MEDS: QUEtiapine 100 MG Tab PO SCH (21:45)
[2016-11-10] MEDS: Sodium Chloride 0.9% 1,000 ML IV SCH (00:40)
[2016-11-10] MEDS: Albuterol/Ipratropium 3.0-0.5 MG/3 ML Neb Soln NEB SCH ×6 (02:11→22:32)
[2016-11-10 05:17] LABS: CHLORIDE,CL 99 mmol/L (98-110); SODIUM,NA 136 mmol/L (136-146)
[2016-11-10] MEDS: Budesonide 0.5 MG/2 ML Neb Susp NEB SCH ×2 (06:16→21:05)
[2016-11-10] MEDS: Nicotine 21 MG/24 Hr Patch TRDERM SCH (08:51)
[2016-11-10] MEDS: Lisinopril 10 MG Tab PO SCH (08:51)
[2016-11-10] MEDS ORDERED: Furosemide 40 MG Tab PO SCH (09:00)
[2016-11-10] MEDS: Levofloxacin/Dextrose 5%-Water 750 MG in Premix Bag 1 BAG IV SCH (11:23)
--- NOTE | 2016-11-10 19:08 | PCM.PN ---
<Hong Sullivan Z - Last Filed: 11/10/16 19:04> - General Info Date of Service: 11/10/16 Admission Dx/Problem (Free Text): She has done well overnight. He still complaining of fatigue. He was having his breathing treatment today. Slight slight wheezing just prior to the breathing treatment. He is tolerating appropriate by mouth without any issues with nausea or vomiting. Not complaining of any chest pain. Functional Status: Reports: Pain Controlled - Review of Systems General: Reports: No Symptoms, Weakness, Fatigue Pulmonary: Reports: Shortness of Breath, Cough, Wheezing - Patient Data Vitals - Most Recent: Last Vital Signs Temp 36.8 C 11/10/16 15:40 Pulse 78 11/10/16 15:40 Resp 20 11/10/16 15:40 BP 136/62 11/10/16 15:40 Pulse Ox 95 11/10/16 15:40 Weight - Most Recent: 115.984 kg I&O - Last 24 Hours: Intake & Output 11/10/16 11/10/16 11/10/16 06:59 14:59 22:59 Intake Total 8648 607 7559 Output Total 840 1375 Balance 598 650 -295 Lab Results Last 24 Hours: Laboratory Results - last 24 hr 11/10/16 11/10/16 Range/Units 04:23 04:23 WBC 8.07 (4.0-11.0) K/uL RBC 4.64 (4.50-5.90) M/uL Hgb 14.7 (13.0-17.0) g/dL Hct 45.9 (38.0-50.0) % MCV 98.9 H (80.0-98.0) fL MCH 31.7 (27.0-32.0) pg MCHC 32.0 (31.0-37.0) g/dL RDW Std Deviation 51.7 (28.0-62.0) fl RDW Coeff of Gregory 15 (11.0-15.0) % Plt Count 146 L (150-400) K/uL MPV 10.40 (7.40-12.00) fL Neut % (Auto) 80.5 H (48.0-80.0) % Lymph % (Auto) 10.5 L (16.0-40.0) % Mccormick % (Auto) 8.2 (0.0-15.0) % Eos % (Auto) 0.6 (0.0-7.0) % Baso % (Auto) 0.2 (0.0-1.5) % Neut # (Auto) 6.5 H (1.4-5.7) K/uL Lymph # (Auto) 0.9 (0.6-2.4) K/uL Mccormick # (Auto) 0.7 (0.0-0.8) K/uL Eos # (Auto) 0.1 (0.0-0.7) K/uL Baso # (Auto) 0.0 (0.0-0.1) K/uL Sodium 136 (136-146) mmol/L Potassium 4.6 (3.5-5.1) mmol/L Chloride 99 (98-110) mmol/L Carbon Dioxide 31 (21-31) mmol/L BUN 11 (6.0-23.0) mg/dL Creatinine 0.9 (0.6-1.5) mg/dL Est Cr Clr Drug Dosing 80.18 mL/min Estimated GFR (MDRD) > 60.0 ml/min Glucose 108 (60-110) mg/dL Calcium 8.3 L (8.8-10.8) mg/dL Total Bilirubin 0.4 (0.1-1.5) mg/dL AST 23 (5-40) IU/L ALT 20 (8-54) IU/L Alkaline Phosphatase 71 (40-150) Total Protein 7.0 (6.0-8.0) g/dL Albumin 4.1 (3.4-4.8) g/dL Globulin 2.9 (2.0-3.5) g/dL Albumin/Globulin Ratio 1.4 (1.3-2.8) Loi Results Last 24 Hours: Microbiology 11/09/16 12:00 Aerobic Blood Culture - Preliminary Blood - Venous - Lab Draw NO GROWTH AFTER 1 DAY Anaerobic Blood Culture - Final 11/09/16 11:50 Aerobic Blood Culture - Preliminary Blood - Venous NO GROWTH AFTER 1 DAY Anaerobic Blood Culture - Preliminary NO GROWTH AFTER 1 DAY 11/09/16 12:32 Gram Stain - Final Sputum - Expectorated Med Orders - Current: Current Medications Acetaminophen (Tylenol) 650 mg PO Q4H PRN PRN Reason: Pain (Mild 1-3)/fever Albuterol/Ipratropium (Duoneb 3.0-0.5 Mg/3 Ml) 3 ml NEB Q4HRRT [facility] Last Admin: 11/10/16 15:50 Dose: 3 ml Budesonide (Pulmicort) 0.5 mg NEB BIDRT [facility] Last Admin: 11/10/16 06:16 Dose: 0.5 mg Docusate Sodium (Colace) 100 mg PO BID PRN PRN Reason: Constipation Furosemide (Lasix) 40 mg PO DAILY [facility] Last Admin: 11/10/16 08:50 Dose: 40 mg Sodium Chloride (Normal Saline) 1,000 mls @ 100 mls/hr IV ASDIRECTED [facility] Last Admin: 11/10/16 00:40 Dose: 100 mls/hr Levofloxacin/Dextrose 750 mg/ (Premix) 150 mls @ 150 mls/hr IV Q24H [facility] Last Admin: 11/10/16 11:23 Dose: 150 mls/hr Vancomycin HCl 1,500 mg/ (Sodium Chloride) 500 mls @ 250 mls/hr IV Q12H [facility] Last Admin: 11/10/16 08:58 Dose: 250 mls/hr Lisinopril (Prinivil) 10 mg PO DAILY [facility] Last Admin: 11/10/16 08:51 Dose: 10 mg Nicotine (Habitrol) 21 mg TRDERM DAILY [facility] Last Admin: 11/10/16 08:51 Dose: 21 mg Ondansetron HCl (Zofran Odt) 4 mg PO Q4H PRN PRN Reason: nausea, able to take PO Oxycodone HCl (Oxycodone) 5 mg PO Q4H PRN PRN Reason: Pain (moderate 4-6) Quetiapine Fumarate (Seroquel) 200 mg PO BEDTIME [facility] Last Admin: 11/09/16 21:45 Dose: 200 mg Sodium Chloride (Saline Flush) 10 ml FLUSH ASDIRECTED PRN PRN Reason: Keep Vein Open Last Admin: 11/09/16 10:56 Dose: 10 ml Sodium Chloride (Saline Flush) 2.5 ml FLUSH ASDIRECTED PRN PRN Reason: Keep Vein Open Last Admin: 11/09/16 10:56 Dose: 2.5 ml Tamsulosin HCl (Flomax) 0.4 mg PO BEDTIME [facility] Last Admin: 11/09/16 21:43 Dose: 0.4 mg Temazepam (Restoril) 15 mg PO BEDTIME PRN PRN Reason: Sleep Vancomycin HCl (Pharmacy To Dose - Vancomycin) 1 dose .XX ASDIRECTED [facility] Discontinued Medications Albuterol/Ipratropium (Duoneb 3.0-0.5 Mg/3 Ml) 3 ml NEB ONETIME ONE Stop: 11/09/16 11:06 Last Admin: 11/09/16 11:13 Dose: 3 ml Albuterol/Ipratropium (Duoneb 3.0-0.5 Mg/3 Ml) 3 ml NEB Q4HRRT PRN PRN Reason: Shortness Of Breath/wheezing Last Admin: 11/09/16 16:32 Dose: 3 ml Aspirin (Aspirin) 324 mg PO ONETIME ONE Stop: 11/09/16 10:40 Last Admin: 11/09/16 10:57 Dose: 324 mg Azithromycin (Zithromax) 500 mg PO ONETIME ONE Stop: 11/09/16 11:47 Last Admin: 11/09/16 11:52 Dose: 500 mg Famotidine (Pepcid) 20 mg IVPUSH ONETIME ONE Stop: 11/09/16 10:40 Last Admin: 11/09/16 10:56 Dose: 20 mg Sodium Chloride (Normal Saline) 1,000 mls @ 999 mls/hr IV STAT ONE Stop: 11/09/16 11:41 Last Admin: 11/09/16 10:56 Dose: 999 mls/hr Azithromycin 500 mg/ Sodium (Chloride) 250 mls @ 250 mls/hr IV ONETIME ONE Stop: 11/09/16 12:32 Last Admin: 11/09/16 11:55 Dose: Not Given Levofloxacin/Dextrose 750 mg/ (Premix) 150 mls @ 100 mls/hr IV ONETIME ONE Stop: 11/09/16 13:07 Last Admin: 11/09/16 11:53 Dose: 100 mls/hr Levofloxacin/Dextrose 500 mg/ (Premix) 100 mls @ 100 mls/hr IV Q24H [facility] Last Admin: 11/09/16 13:31 Dose: Not Given Levofloxacin/Dextrose 750 mg/ (Premix) 150 mls @ 150 mls/hr IV Q24H [facility] Morphine Sulfate (Morphine) 2 mg IVPUSH Q2H PRN PRN Reason: Pain (severe 7-10) Stop: 11/10/16 12:08 Quetiapine Fumarate (Seroquel) 200 mg PO BEDTIME [facility] Tamsulosin HCl (Flomax) 0.4 mg PO ONETIME [facility] - Exam Quality Assessment: Supplemental Oxygen General: Alert HEENT: Pupils Equal Neck: Supple Lungs: Decreased Breath Sounds, Wheezing Cardiovascular: Regular Rate GI/Abdominal Exam: Normal Bowel Sounds Extremities: Normal Inspection - Problem List Review Problem List Initiated/Reviewed/Updated: Yes - My Orders Last 24 Hours: My Active Orders 11/09/16 18:13 RT Aerosol Therapy [RC] ASDIRECTED 11/09/16 21:00 Budesonide [Pulmicort] 0.5 mg NEB BIDRT - Plan Plan:: Assessment and plan: #1. Shortness of breath tachypnea secondary to pneumonia patient's culture growing staph likely MRSA secondary to past medical history of MRSA -Antibiotics azithromycin has been discontinued -patient to continue with Levaquin, and vancomycin -Awaiting patient's sensitivity and specificity of positive culture 2. Congestive heart failure versus COPD exacerbation -Continue patient's home dose of lisinopril patient likely not in an acute congestive heart failure state. -Patient to receive DuoNeb's RT every 4 while awake as well as Pulmicort twice a day -Oxygen therapy as needed titrate per patient's vital signs and respiratory status -Shall have PT assess the patient tomorrow for ambulatory status -Continue to assess the patient's vitals per unit protocol - <Rodger Estrada - Last Filed: 11/12/16 12:43> - General Info Admission Dx/Problem (Free Text): I was present with the resident during history and examination. I discussed the case with the resident and agree with the findings and plan as documented in the residents note. - Patient Data Vitals - Most Recent: Last Vital Signs Temp 36.9 C 11/11/16 16:00 Pulse 78 11/11/16 18:27 Resp 14 11/11/16 19:00 BP 105/43 L 11/11/16 19:00 Pulse Ox 100 11/11/16 18:56 I&O - Last 24 Hours: Intake & Output 11/11/16 11/12/16 11/12/16 22:59 06:59 14:59 Intake Total 440 Output Total 1025 Balance -585 Lab Results Last 24 Hours: Laboratory Results - last 24 hr 11/11/16 11/11/16 11/11/16 Range/Units 17:49 18:00 18:07 WBC (4.0-11.0) K/uL RBC (4.50-5.90) M/uL Hgb (13.0-17.0) g/dL Hct (38.0-50.0) % MCV (80.0-98.0) fL MCH (27.0-32.0) pg MCHC (31.0-37.0) g/dL RDW Std Deviation (28.0-62.0) fl RDW Coeff of Gregory (11.0-15.0) % Plt Count (150-400) K/uL MPV (7.40-12.00) fL Neut % (Auto) (48.0-80.0) % Lymph % (Auto) (16.0-40.0) % Mccormick % (Auto) (0.0-15.0) % Eos % (Auto) (0.0-7.0) % Baso % (Auto) (0.0-1.5) % Neut # (Auto) (1.4-5.7) K/uL Lymph # (Auto) (0.6-2.4) K/uL Mccormick # (Auto) (0.0-0.8) K/uL Eos # (Auto) (0.0-0.7) K/uL Baso # (Auto) (0.0-0.1) K/uL Nucleated RBC % /100WBC Nucleated RBCs # K/uL APTT (18.6-31.3) SEC ABG pH 7.181 L* (7.35-7.45) ABG pCO2 108 H (35-45) mmHG ABG pO2 33 L* (75-100) mmHG ABG HCO3 40 H (22-26) mEq/L ABG Total CO2 37.3 ABG Base Excess 9.0 H (-2.0-2.0) Sodium (136-146) mmol/L Potassium (3.5-5.1) mmol/L Chloride (98-110) mmol/L Carbon Dioxide (21-31) mmol/L BUN (6.0-23.0) mg/dL Creatinine (0.6-1.5) mg/dL Est Cr Clr Drug Dosing mL/min Estimated GFR (MDRD) ml/min Glucose (60-110) mg/dL POC Glucose 134 H (60-110) mg/dL Calcium (8.8-10.8) mg/dL Total Bilirubin (0.1-1.5) mg/dL AST (5-40) IU/L ALT (8-54) IU/L Alkaline Phosphatase (40-150) Troponin I < 0.10 (0.0-0.29) NG/ML Total Protein (6.0-8.0) g/dL Albumin (3.4-4.8) g/dL Globulin (2.0-3.5) g/dL Albumin/Globulin Ratio (1.3-2.8) 11/11/16 11/11/16 11/11/16 Range/Units 18:07 18:07 18:07 WBC 9.73 (4.0-11.0) K/uL RBC 5.16 (4.50-5.90) M/uL Hgb 16.3 (13.0-17.0) g/dL Hct 51.7 H (38.0-50.0) % MCV 100.2 H (80.0-98.0) fL MCH 31.6 (27.0-32.0) pg MCHC 31.5 (31.0-37.0) g/dL RDW Std Deviation 53.5 (28.0-62.0) fl RDW Coeff of Gregory 15 (11.0-15.0) % Plt Count 170 (150-400) K/uL MPV 10.70 (7.40-12.00) fL Neut % (Auto) 73.4 (48.0-80.0) % Lymph % (Auto) 15.0 L (16.0-40.0) % Mccormick % (Auto) 11.0 (0.0-15.0) % Eos % (Auto) 0.3 (0.0-7.0) % Baso % (Auto) 0.3 (0.0-1.5) % Neut # (Auto) 7.1 H (1.4-5.7) K/uL Lymph # (Auto) 1.5 (0.6-2.4) K/uL Mccormick # (Auto) 1.1 H (0.0-0.8) K/uL Eos # (Auto) 0.0 (0.0-0.7) K/uL Baso # (Auto) 0.0 (0.0-0.1) K/uL Nucleated RBC % 0.0 /100WBC Nucleated RBCs # 0 K/uL APTT 31.2 (18.6-31.3) SEC ABG pH (7.35-7.45) ABG pCO2 (35-45) mmHG ABG pO2 (75-100) mmHG ABG HCO3 (22-26) mEq/L ABG Total CO2 ABG Base Excess (-2.0-2.0) Sodium 135 L (136-146) mmol/L Potassium 5.1 (3.5-5.1) mmol/L Chloride 91 L (98-110) mmol/L Carbon Dioxide 35 H (21-31) mmol/L BUN 15 (6.0-23.0) mg/dL Creatinine 1.3 (0.6-1.5) mg/dL Est Cr Clr Drug Dosing 55.51 mL/min Estimated GFR (MDRD) 54.7 ml/min Glucose 132 H (60-110) mg/dL POC Glucose (60-110) mg/dL Calcium 8.8 (8.8-10.8) mg/dL Total Bilirubin 0.4 (0.1-1.5) mg/dL AST 28 (5-40) IU/L ALT 24 (8-54) IU/L Alkaline Phosphatase 77 (40-150) Troponin I (0.0-0.29) NG/ML Total Protein 8.2 H (6.0-8.0) g/dL Albumin 4.3 (3.4-4.8) g/dL Globulin 3.9 H (2.0-3.5) g/dL Albumin/Globulin Ratio 1.1 L (1.3-2.8) 11/11/16 Range/Units 18:48 WBC (4.0-11.0) K/uL RBC (4.50-5.90) M/uL Hgb (13.0-17.0) g/dL Hct (38.0-50.0) % MCV (80.0-98.0) fL MCH (27.0-32.0) pg MCHC (31.0-37.0) g/dL RDW Std Deviation (28.0-62.0) fl RDW Coeff of Gregory (11.0-15.0) % Plt Count (150-400) K/uL MPV (7.40-12.00) fL Neut % (Auto) (48.0-80.0) % Lymph % (Auto) (16.0-40.0) % Mccormick % (Auto) (0.0-15.0) % Eos % (Auto) (0.0-7.0) % Baso % (Auto) (0.0-1.5) % Neut # (Auto) (1.4-5.7) K/uL Lymph # (Auto) (0.6-2.4) K/uL Mccormick # (Auto) (0.0-0.8) K/uL Eos # (Auto) (0.0-0.7) K/uL Baso # (Auto) (0.0-0.1) K/uL Nucleated RBC % /100WBC Nucleated RBCs # K/uL APTT (18.6-31.3) SEC ABG pH 7.316 L (7.35-7.45) ABG pCO2 71 H (35-45) mmHG ABG pO2 326 H (75-100) mmHG ABG HCO3 36 H (22-26) mEq/L ABG Total CO2 32.2 ABG Base Excess 8.3 H (-2.0-2.0) Sodium (136-146) mmol/L Potassium (3.5-5.1) mmol/L Chloride (98-110) mmol/L Carbon Dioxide (21-31) mmol/L BUN (6.0-23.0) mg/dL Creatinine (0.6-1.5) mg/dL Est Cr Clr Drug Dosing mL/min Estimated GFR (MDRD) ml/min Glucose (60-110) mg/dL POC Glucose (60-110) mg/dL Calcium (8.8-10.8) mg/dL Total Bilirubin (0.1-1.5) mg/dL AST (5-40) IU/L ALT (8-54) IU/L Alkaline Phosphatase (40-150) Troponin I (0.0-0.29) NG/ML Total Protein (6.0-8.0) g/dL Albumin (3.4-4.8) g/dL Globulin (2.0-3.5) g/dL Albumin/Globulin Ratio (1.3-2.8) Med Orders - Current: Current Medications Discontinued Medications Acetaminophen (Tylenol) 650 mg PO Q4H PRN PRN Reason: Pain (Mild 1-3)/fever Albuterol/Ipratropium (Duoneb 3.0-0.5 Mg/3 Ml) 3 ml NEB ONETIME ONE Stop: 11/09/16 11:06 Last Admin: 11/09/16 11:13 Dose: 3 ml Albuterol/Ipratropium (Duoneb 3.0-0.5 Mg/3 Ml) 3 ml NEB Q4HRRT PRN PRN Reason: Shortness Of Breath/wheezing Last Admin: 11/09/16 16:32 Dose: 3 ml Albuterol/Ipratropium (Duoneb 3.0-0.5 Mg/3 Ml) 3 ml NEB Q4HRRT [facility] Last Admin: 11/11/16 14:27 Dose: 3 ml Aspirin (Aspirin) 324 mg PO ONETIME ONE Stop: 11/09/16 10:40 Last Admin: 11/09/16 10:57 Dose: 324 mg Azithromycin (Zithromax) 500 mg PO ONETIME ONE Stop: 11/09/16 11:47 Last Admin: 11/09/16 11:52 Dose: 500 mg Budesonide (Pulmicort) 0.5 mg NEB BIDRT [facility] Last Admin: 11/11/16 05:52 Dose: 0.5 mg Docusate Sodium (Colace) 100 mg PO BID PRN PRN Reason: Constipation Etomidate (Amidate) 40 mg IVPUSH .STK-MED ONE Stop: 11/11/16 19:01 Famotidine (Pepcid) 20 mg IVPUSH ONETIME ONE Stop: 11/09/16 10:40 Last Admin: 11/09/16 10:56 Dose: 20 mg Furosemide (Lasix) 40 mg PO DAILY [facility] Last Admin: 11/10/16 08:50 Dose: 40 mg Furosemide (Lasix) 40 mg IVPUSH NOW ONE Stop: 11/10/16 22:45 Last Admin: 11/10/16 22:53 Dose: 40 mg Furosemide (Lasix) 40 mg IVPUSH BID [facility] Last Admin: 11/11/16 08:08 Dose: 40 mg Heparin Sodium (Porcine) (Heparin Sodium) 4,000 units IVPUSH ONETIME ONE Stop: 11/11/16 18:31 Last Admin: 11/11/16 18:35 Dose: 4,000 units Heparin Sodium (Porcine) (Heparin Sodium) 1,000 - 2,000 units IVPUSH Q6H PRN PRN Reason: HEPARIN DRIP BOLUSES Sodium Chloride (Normal Saline) 1,000 mls @ 999 mls/hr IV STAT ONE Stop: 11/09/16 11:41 Last Admin: 11/09/16 10:56 Dose: 999 mls/hr Azithromycin 500 mg/ Sodium (Chloride) 250 mls @ 250 mls/hr IV ONETIME ONE Stop: 11/09/16 12:32 Last Admin: 11/09/16 11:55 Dose: Not Given Levofloxacin/Dextrose 750 mg/ (Premix) 150 mls @ 100 mls/hr IV ONETIME ONE Stop: 11/09/16 13:07 Last Admin: 11/09/16 11:53 Dose: 100 mls/hr Sodium Chloride (Normal Saline) 1,000 mls @ 100 mls/hr IV ASDIRECTED [facility] Last Admin: 11/10/16 00:40 Dose: 100 mls/hr Levofloxacin/Dextrose 500 mg/ (Premix) 100 mls @ 100 mls/hr IV Q24H [facility] Last Admin: 11/09/16 13:31 Dose: Not Given Levofloxacin/Dextrose 750 mg/ (Premix) 150 mls @ 150 mls/hr IV Q24H [facility] Levofloxacin/Dextrose 750 mg/ (Premix) 150 mls @ 100 mls/hr IV Q24H [facility] Last Admin: 11/11/16 10:20 Dose: 150 mls/hr Vancomycin HCl 1,500 mg/ (Sodium Chloride) 500 mls @ 250 mls/hr IV Q12H [facility] Last Admin: 11/11/16 07:53 Dose: 250 mls/hr Heparin Sod,Pork In 0.45% Nacl (Heparin-1/2ns 25,000 Units/500) 25,000 unit in 500 mls @ 20 mls/hr IV TITRATE [facility] PRN Reason: Protocol Alteplase, Recombinant 100 mg/ (Premix) 0 mls @ 0 mls/hr IV .INFUSION [facility] Last Admin: 11/11/16 19:40 Dose: Not Given Propofol (Diprivan 50 Ml) Confirm Administered Dose 50 mls @ as directed .ROUTE .STK-MED ONE Stop: 11/11/16 18:39 Last Admin: 11/11/16 18:45 Dose: 20 mg Dopamine HCl/Dextrose (Dopamine In D5w 400 Mg/250 Ml) 400 mg in 250 mls @ 21.281 mls/hr IV ASDIRECTED [facility]; 5 MCG/KG/MIN PRN Reason: Protocol Last Admin: 11/11/16 18:35 Dose: 5 mcg/kg/min, 21.281 mls/hr Propofol (Diprivan 100 Ml) 100 mls @ 3.405 mls/hr IV TITRATE [facility]; 5 MCG/KG/MIN PRN Reason: Protocol Sodium Chloride (Normal Saline) 1,000 mls @ 999 mls/hr IV .Bolus ONE Stop: 11/11/16 19:00 Last Admin: 11/11/16 18:00 Dose: 999 mls/hr Alteplase, Recombinant 100 mg/ (Premix) 0 mls @ 0 mls/hr IV .INFUSION ONE Stop: 11/11/16 19:01 Last Admin: 11/11/16 19:05 Dose: 100 mls/hr Lisinopril (Prinivil) 10 mg PO DAILY [facility] Last Admin: 11/11/16 08:08 Dose: 10 mg Midazolam HCl (Versed 1 Mg/Ml) Confirm Administered Dose 2 mg .ROUTE .STK-MED ONE Stop: 11/11/16 18:23 Midazolam HCl (Versed 1 Mg/Ml) 2 mg IVPUSH ONETIME ONE Stop: 11/11/16 18:43 Morphine Sulfate (Morphine) 2 mg IVPUSH Q2H PRN PRN Reason: Pain (severe 7-10) Stop: 11/10/16 12:08 Nicotine (Habitrol) 21 mg TRDERM DAILY [facility] Last Admin: 11/11/16 08:15 Dose: 21 mg Ondansetron HCl (Zofran Odt) 4 mg PO Q4H PRN PRN Reason: nausea, able to take PO Last Admin: 11/11/16 15:27 Dose: 4 mg Oxycodone HCl (Oxycodone) 5 mg PO Q4H PRN PRN Reason: Pain (moderate 4-6) Last Admin: 11/11/16 03:39 Dose: 5 mg Quetiapine Fumarate (Seroquel) 200 mg PO BEDTIME [facility] Quetiapine Fumarate (Seroquel) 200 mg PO BEDTIME [facility] Last Admin: 11/10/16 20:01 Dose: 200 mg Rocuronium [place] (Zemuron) 200 mg .ROUTE .STK-MED ONE Stop: 11/11/16 19:01 Sodium Chloride (Saline Flush) 10 ml FLUSH ASDIRECTED PRN PRN Reason: Keep Vein Open Last Admin: 11/09/16 10:56 Dose: 10 ml Sodium Chloride (Saline Flush) 2.5 ml FLUSH ASDIRECTED PRN PRN Reason: Keep Vein Open Last Admin: 11/09/16 10:56 Dose: 2.5 ml Succinylcholine Chloride (Quelicin) 200 mg .ROUTE .STK-MED ONE Stop: 11/11/16 19:01 Tamsulosin HCl (Flomax) 0.4 mg PO ONETIME [facility] Tamsulosin HCl (Flomax) 0.4 mg PO BEDTIME [facility] Last Admin: 11/10/16 20:01 Dose: 0.4 mg Temazepam (Restoril) 15 mg PO BEDTIME PRN PRN Reason: Sleep Vancomycin HCl (Pharmacy To Dose - Vancomycin) 1 dose .XX ASDIRECTED [facility]
[2016-11-10] MEDS: Tamsulosin 0.4 MG Cap.ER PO SCH (20:01)
[2016-11-10] MEDS: QUEtiapine 100 MG Tab PO SCH (20:01)
[2016-11-10] MEDS ORDERED: QUEtiapine 100 MG Tab PO SCH (21:00)
[2016-11-10] MEDS ORDERED: Furosemide 40 MG/4 ML VIAL IVPUSH ONE (22:44)
--- NOTE | 2016-11-11 00:03 | PCM.SN ---
- Free Text/Narrative Note: The patient is a 71-year-old gentleman who was initially admitted for acute shortness of breath and hypoxia. The patient had been on home oxygen at 4 L/m. He had also been feverish. The patient does have a history of MRSA pneumonia. Approximately 20-30 was called in to see the patient secondary to his worsening breathing as well as continued hypoxia. The patient had been on 4 L by nasal cannula and his pulse oximetry had worsened to 91%. The patient was also have an significant shortness of breath to accompany this. The patient was also noted to have orthopnea. His auscultation had showed rales and rhonchi with decreased breath sounds on the left. The patient says that he has not been using his CPAP device and does not have it with him and has nobody to go get him for him. Patient says his main concern is that he has not slept in 5 days. The patient had a chest x-ray completed which was suggestive of increasing pulmonary edema. The patient had been given 40 mg of Lasix IV and the patient was offered a Go catheter to help with his urination and he has declined this. The patient was ordered that 40 mg of Lasix IV every 12 hours to help with his pulmonary congestion. I'll see the patient in follow-up in the morning.
[2016-11-11] MEDS: Albuterol/Ipratropium 3.0-0.5 MG/3 ML Neb Soln NEB SCH ×4 (02:27→14:27)
[2016-11-11 05:48] LABS: CHLORIDE,CL 95 mmol/L (98-110); SODIUM,NA 135 mmol/L (136-146)
[2016-11-11] MEDS: Budesonide 0.5 MG/2 ML Neb Susp NEB SCH (05:52)
[2016-11-11] MEDS: Lisinopril 10 MG Tab PO SCH (08:08)
[2016-11-11] MEDS: Nicotine 21 MG/24 Hr Patch TRDERM SCH (08:15)
[2016-11-11] MEDS ORDERED: Furosemide 40 MG/4 ML VIAL IVPUSH SCH (09:00)
[2016-11-11] MEDS: Levofloxacin/Dextrose 5%-Water 750 MG in Premix Bag 1 BAG IV SCH (10:20)
--- NOTE | 2016-11-11 14:30 | CR ---
EXAM DATE: 11/11/16 PATIENT'S AGE: 71 Patient: RAFAEL BROWNING Facility: [place], [place] Site . Site : 1945 Study: XRay Chest [id number] 11:14:40 PM Ordering Physician: Natalie Soares Final Report: INDICATION: Increased shortness of breath, low oxygen saturation TECHNIQUE: Chest 2 views. COMPARISON: November 09, 2016 FINDINGS: Stable cardiomegaly. No definite focal infiltrate or effusion. No pneumothorax. No acute osseous abnormality. IMPRESSION: No sign of acute disease. Dictated by Dottie Quezada MD @ Nov 10 2016 11:21PM (Electronic Signature) Report Signed by Proxy. ANNIE
[2016-11-11] MEDS ORDERED: Sodium Chloride 0.9% 1,000 ML IV ONE (18:00)
[2016-11-11] MEDS ORDERED: Heparin Sod,Pork In 0.45% Nacl 25,000 UNIT/500 ML IV.SOLN IV SCH (18:15)
[2016-11-11] MEDS ORDERED: Midazolam 1 MG/ML 2 ML SDV ONE (18:22)
[2016-11-11] MEDS ORDERED: Heparin Sodium 5,000 Units/ML Vial IVPUSH ONE (18:30)
[2016-11-11] MEDS ORDERED: Heparin Sodium 5,000 Units/ML Vial IVPUSH PRN (18:34)
[2016-11-11] MEDS ORDERED: Midazolam 1 MG/ML 2 ML SDV IVPUSH ONE (18:42)
[2016-11-11] MEDS ORDERED: ALTEPLASE IV SCH (18:45)
[2016-11-11] MEDS ORDERED: DOPamine/Dextrose 5%-Water 400 MG/250 ML BAG IV SCH (18:45)
[2016-11-11] MEDS ORDERED: Succinylcholine 200 MG/10 ML MDV ONE (19:00)
[2016-11-11] MEDS ORDERED: Rocuronium 100 MG/10 ML MDV ONE (19:00)
[2016-11-11] MEDS ORDERED: ALTEPLASE IV ONE (19:00)
[2016-11-11] MEDS ORDERED: Etomidate 2 MG/ML 20 ML SDV IVPUSH ONE (19:00)
--- NOTE | 2016-11-11 19:00 | PCM.SN ---
- Free Text/Narrative Note: Called by Dr Michelle to 203, where the patient was found essentially unresponsive. ABG yielded PCO2 >100 which was done prior to my arrival. RSI was performed with the following: Etomidate 20mg IVP Rocuronium 10mg IVP Succinylcholine 100mg IVP DL with Quezada 2 yields Grade I view, 8.0 ETT placed. +BBS, +EtCO2. CXR pending at this time. Versed 2mg IV and Rocuronium 40mg IV given once the patient was transfer to ICU. Pt was hypotensive on arrival to ICU BP 70's, Dopamine 5mcg/kg/min was started with SBP improvement to 110's. Pt was noted to trying to open his eyes 20 minutes post RSI so Propofol was started at 25mcg/kg/min and titrated up to 50mcg/kg/min. Current vent settings - R - 14, TV - 600, FiO2 - 100%, Peep - 5. Repeat shows ABG improving respiratory acidosis. Flight team will correlate with EtCO2 during transport.
[2016-11-11 20:15] VITALS: BP 105/43
--- NOTE | 2016-11-11 20:36 | PCM.DCSUM1 ---
<Hong Sullivan Z - Last Filed: 11/11/16 20:26> Discharge Summary - Hospital Course Free Text/Narrative:: Discharge Summary Date of admission: 11/09/2016 Date of discharge: 11/11/2016 Admitting diagnosis: #1. Shortness of breath, tachypnea secondary to possible community-acquired pneumonia versus atypical pneumonia #2. #3. #4. #5. Discharge diagnoses: #1. Inferior wall [place] acute #2. Congestive heart failure exacerbation #3. Pneumonia ruled out #4. #5. 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 Patient was having shortness of breath with coughing. Patient was put on oxygenation broad-spectrum antibiotics. As well as assessment with RT lactic acid level was trended which came back normal. BNP was drawn which was also normal on admission, troponins that were drawn were also normal on admission. Despite IV antibiotic usage as well as respiratory therapy intervention patient still seem to be having difficulty in terms of his shortness of breath and breathing. Patient later on stated on day 2 of admission that he was in fact on BiPAP which was not within our documentation is up to that the patient failed to tell us on admission. A chest x-ray last night on 11/10/2016 showed left-sided white out likely secondary to acute CHF exacerbation. She was receiving Lasix upon assessment of chest x-ray patient was stable slightly uncomfortable throughout the day today. At 6 PM on 11/11/2016, I walked into the patient's room just to check up on the patient to see how he was doing. Patient was sitting on his extremely diaphoretic with pinpoint pupils, groaning when I asked him a question, only responding initially to a sternal rub. Patient managed to speak a couple words but they were incoherent. I quickly grabbed the nursing staff who had seen the patient just earlier asking if they had noticed this they had said that they had not seen the patient like this throughout the day today. At that point in time upon quickly assessing the patient I called a rapid response. Quickly putting the patient on his bed getting IV access started right away, bagging the patient to ensure that he was getting oxygenation, getting an ECG done right away. Initial oxygenation showed a O2 saturation of 50-60%, initial blood pressure reading showed hypotension with a systolic in the 50s and a diastolic in the 40s. EKG showed inferior wall [place] STEMI in nature. Patient was still slightly responding to sternal rub. At that point in time I made the decision to have the patient intubated due to imminent respiratory compromise. ABG, CBC, troponins, BNP, CMP were immediately drawn. Patient received 1 L wide open normal saline due to hypotension. Patient also received IV heparin bolus 4000 units right away. Throughout this process the patient did not require any chest compressions, nor did the patient require/have any rhythm that required shocking. Patient was quickly transferred over to the ICU, and after quickly speaking with Dr. Roa at the [facility] in [place] decision was made to illness the patient to [facility]. Patient was given TPA after speaking with Dr. Roa at [place]. Disposition on discharge: [facility] for assessment of possible cardiac catheterization Condition on discharge: Critical, patient intubated, patient receiving TPA - Discharge Data Discharge Date: 11/11/16 Discharge Disposition: DC/Tfer to Acute Hospital 02 Condition: Critical - Patient Summary/Data Consults: Consultations 11/11/16 10:20 PT Evaluation and Treatment [CONS] Routine - Discharge Plan Home Medications: Home Meds Albuterol [IJD: Ventolin HFA] 2 inh IH Q4H PRN 11/09/16 [History] Aspirin 325 mg PO DAILY 11/09/16 [History] Budesonide/Formoterol [Symbicort 160-4.5 MCG] 2 inh IH BID 11/09/16 [History] Furosemide 60 mg PO DAILY 11/09/16 [History] Lisinopril 10 mg PO DAILY 11/09/16 [History] QUEtiapine Fumarate [Quetiapine Fumarate] 200 mg PO BEDTIME 11/09/16 [History] Tamsulosin [Flomax] 0.4 mg PO DAILY 11/09/16 [History] Patient Handouts: Shortness of Breath, [id number] - Discharge Summary/Plan Comment DC Time >30 min.: Yes (Critical transfer detailed discharge summary of events that occurred prior ) - Patient Data Vitals - Most Recent: Last Vital Signs Temp 36.9 C 11/11/16 16:00 Pulse 78 11/11/16 18:27 Resp 14 11/11/16 19:00 BP 105/43 L 11/11/16 19:00 Pulse Ox 100 11/11/16 18:56 Weight - Most Recent: 113.5 kg I&O - Last 24 hours: Intake & Output 11/11/16 11/11/16 11/11/16 06:59 14:59 22:59 Intake Total 650 440 Output Total 1025 Balance 650 -585 Lab Results - Last 24 hrs: Laboratory Results - last 24 hr 11/11/16 11/11/16 11/11/16 Range/Units 17:49 18:00 18:07 WBC (4.0-11.0) K/uL RBC (4.50-5.90) M/uL Hgb (13.0-17.0) g/dL Hct (38.0-50.0) % MCV (80.0-98.0) fL MCH (27.0-32.0) pg MCHC (31.0-37.0) g/dL RDW Std Deviation (28.0-62.0) fl RDW Coeff of Gregory (11.0-15.0) % Plt Count (150-400) K/uL MPV (7.40-12.00) fL Neut % (Auto) (48.0-80.0) % Lymph % (Auto) (16.0-40.0) % Rhea % (Auto) (0.0-15.0) % Eos % (Auto) (0.0-7.0) % Baso % (Auto) (0.0-1.5) % Neut # (Auto) (1.4-5.7) K/uL Lymph # (Auto) (0.6-2.4) K/uL Rhea # (Auto) (0.0-0.8) K/uL Eos # (Auto) (0.0-0.7) K/uL Baso # (Auto) (0.0-0.1) K/uL Nucleated RBC % /100WBC Nucleated RBCs # K/uL APTT (18.6-31.3) SEC ABG pH 7.181 L* (7.35-7.45) ABG pCO2 108 H (35-45) mmHG ABG pO2 33 L* (75-100) mmHG ABG HCO3 40 H (22-26) mEq/L ABG Total CO2 37.3 ABG Base Excess 9.0 H (-2.0-2.0) Sodium (136-146) mmol/L Potassium (3.5-5.1) mmol/L Chloride (98-110) mmol/L Carbon Dioxide (21-31) mmol/L BUN (6.0-23.0) mg/dL Creatinine (0.6-1.5) mg/dL Est Cr Clr Drug Dosing mL/min Estimated GFR (MDRD) ml/min Glucose (60-110) mg/dL POC Glucose 134 H (60-110) mg/dL Calcium (8.8-10.8) mg/dL Total Bilirubin (0.1-1.5) mg/dL AST (5-40) IU/L ALT (8-54) IU/L Alkaline Phosphatase (40-150) Troponin I < 0.10 (0.0-0.29) NG/ML Total Protein (6.0-8.0) g/dL Albumin (3.4-4.8) g/dL Globulin (2.0-3.5) g/dL Albumin/Globulin Ratio (1.3-2.8) 11/11/16 11/11/16 11/11/16 Range/Units 18:07 18:07 18:07 WBC 9.73 (4.0-11.0) K/uL RBC 5.16 (4.50-5.90) M/uL Hgb 16.3 (13.0-17.0) g/dL Hct 51.7 H (38.0-50.0) % MCV 100.2 H (80.0-98.0) fL MCH 31.6 (27.0-32.0) pg MCHC 31.5 (31.0-37.0) g/dL RDW Std Deviation 53.5 (28.0-62.0) fl RDW Coeff of Gregory 15 (11.0-15.0) % Plt Count 170 (150-400) K/uL MPV 10.70 (7.40-12.00) fL Neut % (Auto) 73.4 (48.0-80.0) % Lymph % (Auto) 15.0 L (16.0-40.0) % Rhea % (Auto) 11.0 (0.0-15.0) % Eos % (Auto) 0.3 (0.0-7.0) % Baso % (Auto) 0.3 (0.0-1.5) % Neut # (Auto) 7.1 H (1.4-5.7) K/uL Lymph # (Auto) 1.5 (0.6-2.4) K/uL Rhea # (Auto) 1.1 H (0.0-0.8) K/uL Eos # (Auto) 0.0 (0.0-0.7) K/uL Baso # (Auto) 0.0 (0.0-0.1) K/uL Nucleated RBC % 0.0 /100WBC Nucleated RBCs # 0 K/uL APTT 31.2 (18.6-31.3) SEC ABG pH (7.35-7.45) ABG pCO2 (35-45) mmHG ABG pO2 (75-100) mmHG ABG HCO3 (22-26) mEq/L ABG Total CO2 ABG Base Excess (-2.0-2.0) Sodium 135 L (136-146) mmol/L Potassium 5.1 (3.5-5.1) mmol/L Chloride 91 L (98-110) mmol/L Carbon Dioxide 35 H (21-31) mmol/L BUN 15 (6.0-23.0) mg/dL Creatinine 1.3 (0.6-1.5) mg/dL Est Cr Clr Drug Dosing 55.51 mL/min Estimated GFR (MDRD) 54.7 ml/min Glucose 132 H (60-110) mg/dL POC Glucose (60-110) mg/dL Calcium 8.8 (8.8-10.8) mg/dL Total Bilirubin 0.4 (0.1-1.5) mg/dL AST 28 (5-40) IU/L ALT 24 (8-54) IU/L Alkaline Phosphatase 77 (40-150) Troponin I (0.0-0.29) NG/ML Total Protein 8.2 H (6.0-8.0) g/dL Albumin 4.3 (3.4-4.8) g/dL Globulin 3.9 H (2.0-3.5) g/dL Albumin/Globulin Ratio 1.1 L (1.3-2.8) 11/11/16 Range/Units 18:48 WBC (4.0-11.0) K/uL RBC (4.50-5.90) M/uL Hgb (13.0-17.0) g/dL Hct (38.0-50.0) % MCV (80.0-98.0) fL MCH (27.0-32.0) pg MCHC (31.0-37.0) g/dL RDW Std Deviation (28.0-62.0) fl RDW Coeff of Gregory (11.0-15.0) % Plt Count (150-400) K/uL MPV (7.40-12.00) fL Neut % (Auto) (48.0-80.0) % Lymph % (Auto) (16.0-40.0) % Rhea % (Auto) (0.0-15.0) % Eos % (Auto) (0.0-7.0) % Baso % (Auto) (0.0-1.5) % Neut # (Auto) (1.4-5.7) K/uL Lymph # (Auto) (0.6-2.4) K/uL Rhea # (Auto) (0.0-0.8) K/uL Eos # (Auto) (0.0-0.7) K/uL Baso # (Auto) (0.0-0.1) K/uL Nucleated RBC % /100WBC Nucleated RBCs # K/uL APTT (18.6-31.3) SEC ABG pH 7.316 L (7.35-7.45) ABG pCO2 71 H (35-45) mmHG ABG pO2 326 H (75-100) mmHG ABG HCO3 36 H (22-26) mEq/L ABG Total CO2 32.2 ABG Base Excess 8.3 H (-2.0-2.0) Sodium (136-146) mmol/L Potassium (3.5-5.1) mmol/L Chloride (98-110) mmol/L Carbon Dioxide (21-31) mmol/L BUN (6.0-23.0) mg/dL Creatinine (0.6-1.5) mg/dL Est Cr Clr Drug Dosing mL/min Estimated GFR (MDRD) ml/min Glucose (60-110) mg/dL POC Glucose (60-110) mg/dL Calcium (8.8-10.8) mg/dL Total Bilirubin (0.1-1.5) mg/dL AST (5-40) IU/L ALT (8-54) IU/L Alkaline Phosphatase (40-150) Troponin I (0.0-0.29) NG/ML Total Protein (6.0-8.0) g/dL Albumin (3.4-4.8) g/dL Globulin (2.0-3.5) g/dL Albumin/Globulin Ratio (1.3-2.8) Med Orders - Current: Current Medications Discontinued Medications Acetaminophen (Tylenol) 650 mg PO Q4H PRN PRN Reason: Pain (Mild 1-3)/fever Albuterol/Ipratropium (Duoneb 3.0-0.5 Mg/3 Ml) 3 ml NEB ONETIME ONE Stop: 11/09/16 11:06 Last Admin: 11/09/16 11:13 Dose: 3 ml Albuterol/Ipratropium (Duoneb 3.0-0.5 Mg/3 Ml) 3 ml NEB Q4HRRT PRN PRN Reason: Shortness Of Breath/wheezing Last Admin: 11/09/16 16:32 Dose: 3 ml Albuterol/Ipratropium (Duoneb 3.0-0.5 Mg/3 Ml) 3 ml NEB Q4HRRT [facility] Last Admin: 11/11/16 14:27 Dose: 3 ml Aspirin (Aspirin) 324 mg PO ONETIME ONE Stop: 11/09/16 10:40 Last Admin: 11/09/16 10:57 Dose: 324 mg Azithromycin (Zithromax) 500 mg PO ONETIME ONE Stop: 11/09/16 11:47 Last Admin: 11/09/16 11:52 Dose: 500 mg Budesonide (Pulmicort) 0.5 mg NEB BIDRT [facility] Last Admin: 11/11/16 05:52 Dose: 0.5 mg Docusate Sodium (Colace) 100 mg PO BID PRN PRN Reason: Constipation Famotidine (Pepcid) 20 mg IVPUSH ONETIME ONE Stop: 11/09/16 10:40 Last Admin: 11/09/16 10:56 Dose: 20 mg Furosemide (Lasix) 40 mg PO DAILY [facility] Last Admin: 11/10/16 08:50 Dose: 40 mg Furosemide (Lasix) 40 mg IVPUSH NOW ONE Stop: 11/10/16 22:45 Last Admin: 11/10/16 22:53 Dose: 40 mg Furosemide (Lasix) 40 mg IVPUSH BID [facility] Last Admin: 11/11/16 08:08 Dose: 40 mg Heparin Sodium (Porcine) (Heparin Sodium) 4,000 units IVPUSH ONETIME ONE Stop: 11/11/16 18:31 Last Admin: 11/11/16 18:35 Dose: 4,000 units Heparin Sodium (Porcine) (Heparin Sodium) 1,000 - 2,000 units IVPUSH Q6H PRN PRN Reason: HEPARIN DRIP BOLUSES Sodium Chloride (Normal Saline) 1,000 mls @ 999 mls/hr IV STAT ONE Stop: 11/09/16 11:41 Last Admin: 11/09/16 10:56 Dose: 999 mls/hr Azithromycin 500 mg/ Sodium (Chloride) 250 mls @ 250 mls/hr IV ONETIME ONE Stop: 11/09/16 12:32 Last Admin: 11/09/16 11:55 Dose: Not Given Levofloxacin/Dextrose 750 mg/ (Premix) 150 mls @ 100 mls/hr IV ONETIME ONE Stop: 11/09/16 13:07 Last Admin: 11/09/16 11:53 Dose: 100 mls/hr Sodium Chloride (Normal Saline) 1,000 mls @ 100 mls/hr IV ASDIRECTED [facility] Last Admin: 11/10/16 00:40 Dose: 100 mls/hr Levofloxacin/Dextrose 500 mg/ (Premix) 100 mls @ 100 mls/hr IV Q24H [facility] Last Admin: 11/09/16 13:31 Dose: Not Given Levofloxacin/Dextrose 750 mg/ (Premix) 150 mls @ 150 mls/hr IV Q24H [facility] Levofloxacin/Dextrose 750 mg/ (Premix) 150 mls @ 100 mls/hr IV Q24H [facility] Last Admin: 11/11/16 10:20 Dose: 150 mls/hr Vancomycin HCl 1,500 mg/ (Sodium Chloride) 500 mls @ 250 mls/hr IV Q12H [facility] Last Admin: 11/11/16 07:53 Dose: 250 mls/hr Heparin Sod,Pork In 0.45% Nacl (Heparin-1/2ns 25,000 Units/500) 25,000 unit in 500 mls @ 20 mls/hr IV TITRATE KANDY PRN Reason: Protocol Alteplase, Recombinant 100 mg/ (Premix) 0 mls @ 0 mls/hr IV .INFUSION [facility] Last Admin: 11/11/16 19:40 Dose: Not Given Propofol (Diprivan 50 Ml) Confirm Administered Dose 50 mls @ as directed .ROUTE .STK-MED ONE Stop: 11/11/16 18:39 Last Admin: 11/11/16 18:45 Dose: 20 mg Dopamine HCl/Dextrose (Dopamine In D5w 400 Mg/250 Ml) 400 mg in 250 mls @ 21.281 mls/hr IV ASDIRECTED KANDY; 5 MCG/KG/MIN PRN Reason: Protocol Last Admin: 11/11/16 18:35 Dose: 5 mcg/kg/min, 21.281 mls/hr Propofol (Diprivan 100 Ml) 100 mls @ 3.405 mls/hr IV TITRATE KANDY; 5 MCG/KG/MIN PRN Reason: Protocol Sodium Chloride (Normal Saline) 1,000 mls @ 999 mls/hr IV .Bolus ONE Stop: 11/11/16 19:00 Last Admin: 11/11/16 18:00 Dose: 999 mls/hr Alteplase, Recombinant 100 mg/ (Premix) 0 mls @ 0 mls/hr IV .INFUSION ONE Stop: 11/11/16 19:01 Last Admin: 11/11/16 19:05 Dose: 100 mls/hr Lisinopril (Prinivil) 10 mg PO DAILY [facility] Last Admin: 11/11/16 08:08 Dose: 10 mg Midazolam HCl (Versed 1 Mg/Ml) Confirm Administered Dose 2 mg .ROUTE .STK-MED ONE Stop: 11/11/16 18:23 Midazolam HCl (Versed 1 Mg/Ml) 2 mg IVPUSH ONETIME ONE Stop: 11/11/16 18:43 Morphine Sulfate (Morphine) 2 mg IVPUSH Q2H PRN PRN Reason: Pain (severe 7-10) Stop: 11/10/16 12:08 Nicotine (Habitrol) 21 mg TRDERM DAILY [facility] Last Admin: 11/11/16 08:15 Dose: 21 mg Ondansetron HCl (Zofran Odt) 4 mg PO Q4H PRN PRN Reason: nausea, able to take PO Last Admin: 11/11/16 15:27 Dose: 4 mg Oxycodone HCl (Oxycodone) 5 mg PO Q4H PRN PRN Reason: Pain (moderate 4-6) Last Admin: 11/11/16 03:39 Dose: 5 mg Quetiapine Fumarate (Seroquel) 200 mg PO BEDTIME KANDY Quetiapine Fumarate (Seroquel) 200 mg PO BEDTIME [facility] Last Admin: 11/10/16 20:01 Dose: 200 mg Sodium Chloride (Saline Flush) 10 ml FLUSH ASDIRECTED PRN PRN Reason: Keep Vein Open Last Admin: 11/09/16 10:56 Dose: 10 ml Sodium Chloride (Saline Flush) 2.5 ml FLUSH ASDIRECTED PRN PRN Reason: Keep Vein Open Last Admin: 11/09/16 10:56 Dose: 2.5 ml Tamsulosin HCl (Flomax) 0.4 mg PO ONETIME KANDY Tamsulosin HCl (Flomax) 0.4 mg PO BEDTIME [facility] Last Admin: 11/10/16 20:01 Dose: 0.4 mg Temazepam (Restoril) 15 mg PO BEDTIME PRN PRN Reason: Sleep Vancomycin HCl (Pharmacy To Dose - Vancomycin) 1 dose .XX ASDIRECTED KANDY *Q Meaningful Use (DIS) - VTE *Q VTE Criteria *Q: - Stroke *Q Stroke Criteria *Q: - AMI *Q AMI Criteria *Q: <Rodger Estrada - Last Filed: 11/12/16 12:50> Discharge Summary - Hospital Course Brief History: The patient had a inferior wall acute myocardial infarction. The patient's vital signs were unstable initially and he was stabilized. Patient's oxygen saturations had improved significantly as well as his blood pressure. The patient was intubated without difficulty by JEWELRY POLISHER and central line was placed.I was present with the resident during history and examination. I discussed the case with the resident and agree with the findings and plan as documented in the residents note. - Patient Summary/Data Consults: Consultations 11/11/16 10:20 PT Evaluation and Treatment [CONS] Routine - Patient Data Vitals - Most Recent: Last Vital Signs Temp 36.9 C 11/11/16 16:00 Pulse 78 11/11/16 18:27 Resp 14 11/11/16 19:00 BP 105/43 L 11/11/16 19:00 Pulse Ox 100 11/11/16 18:56 I&O - Last 24 hours: Intake & Output 11/11/16 11/12/16 11/12/16 22:59 06:59 14:59 Intake Total 440 Output Total 1025 Balance -585 Lab Results - Last 24 hrs: Laboratory Results - last 24 hr 11/11/16 11/11/16 11/11/16 Range/Units 17:49 18:00 18:07 WBC (4.0-11.0) K/uL RBC (4.50-5.90) M/uL Hgb (13.0-17.0) g/dL Hct (38.0-50.0) % MCV (80.0-98.0) fL MCH (27.0-32.0) pg MCHC (31.0-37.0) g/dL RDW Std Deviation (28.0-62.0) fl RDW Coeff of Gregory (11.0-15.0) % Plt Count (150-400) K/uL MPV (7.40-12.00) fL Neut % (Auto) (48.0-80.0) % Lymph % (Auto) (16.0-40.0) % Rhea % (Auto) (0.0-15.0) % Eos % (Auto) (0.0-7.0) % Baso % (Auto) (0.0-1.5) % Neut # (Auto) (1.4-5.7) K/uL Lymph # (Auto) (0.6-2.4) K/uL Rhea # (Auto) (0.0-0.8) K/uL Eos # (Auto) (0.0-0.7) K/uL Baso # (Auto) (0.0-0.1) K/uL Nucleated RBC % /100WBC Nucleated RBCs # K/uL APTT (18.6-31.3) SEC ABG pH 7.181 L* (7.35-7.45) ABG pCO2 108 H (35-45) mmHG ABG pO2 33 L* (75-100) mmHG ABG HCO3 40 H (22-26) mEq/L ABG Total CO2 37.3 ABG Base Excess 9.0 H (-2.0-2.0) Sodium (136-146) mmol/L Potassium (3.5-5.1) mmol/L Chloride (98-110) mmol/L Carbon Dioxide (21-31) mmol/L BUN (6.0-23.0) mg/dL Creatinine (0.6-1.5) mg/dL Est Cr Clr Drug Dosing mL/min Estimated GFR (MDRD) ml/min Glucose (60-110) mg/dL POC Glucose 134 H (60-110) mg/dL Calcium (8.8-10.8) mg/dL Total Bilirubin (0.1-1.5) mg/dL AST (5-40) IU/L ALT (8-54) IU/L Alkaline Phosphatase (40-150) Troponin I < 0.10 (0.0-0.29) NG/ML Total Protein (6.0-8.0) g/dL Albumin (3.4-4.8) g/dL Globulin (2.0-3.5) g/dL Albumin/Globulin Ratio (1.3-2.8) 11/11/16 11/11/16 11/11/16 Range/Units 18:07 18:07 18:07 WBC 9.73 (4.0-11.0) K/uL RBC 5.16 (4.50-5.90) M/uL Hgb 16.3 (13.0-17.0) g/dL Hct 51.7 H (38.0-50.0) % MCV 100.2 H (80.0-98.0) fL MCH 31.6 (27.0-32.0) pg MCHC 31.5 (31.0-37.0) g/dL RDW Std Deviation 53.5 (28.0-62.0) fl RDW Coeff of Gregory 15 (11.0-15.0) % Plt Count 170 (150-400) K/uL MPV 10.70 (7.40-12.00) fL Neut % (Auto) 73.4 (48.0-80.0) % Lymph % (Auto) 15.0 L (16.0-40.0) % Rhea % (Auto) 11.0 (0.0-15.0) % Eos % (Auto) 0.3 (0.0-7.0) % Baso % (Auto) 0.3 (0.0-1.5) % Neut # (Auto) 7.1 H (1.4-5.7) K/uL Lymph # (Auto) 1.5 (0.6-2.4) K/uL Rhea # (Auto) 1.1 H (0.0-0.8) K/uL Eos # (Auto) 0.0 (0.0-0.7) K/uL Baso # (Auto) 0.0 (0.0-0.1) K/uL Nucleated RBC % 0.0 /100WBC Nucleated RBCs # 0 K/uL APTT 31.2 (18.6-31.3) SEC ABG pH (7.35-7.45) ABG pCO2 (35-45) mmHG ABG pO2 (75-100) mmHG ABG HCO3 (22-26) mEq/L ABG Total CO2 ABG Base Excess (-2.0-2.0) Sodium 135 L (136-146) mmol/L Potassium 5.1 (3.5-5.1) mmol/L Chloride 91 L (98-110) mmol/L Carbon Dioxide 35 H (21-31) mmol/L BUN 15 (6.0-23.0) mg/dL Creatinine 1.3 (0.6-1.5) mg/dL Est Cr Clr Drug Dosing 55.51 mL/min Estimated GFR (MDRD) 54.7 ml/min Glucose 132 H (60-110) mg/dL POC Glucose (60-110) mg/dL Calcium 8.8 (8.8-10.8) mg/dL Total Bilirubin 0.4 (0.1-1.5) mg/dL AST 28 (5-40) IU/L ALT 24 (8-54) IU/L Alkaline Phosphatase 77 (40-150) Troponin I (0.0-0.29) NG/ML Total Protein 8.2 H (6.0-8.0) g/dL Albumin 4.3 (3.4-4.8) g/dL Globulin 3.9 H (2.0-3.5) g/dL Albumin/Globulin Ratio 1.1 L (1.3-2.8) 11/11/16 Range/Units 18:48 WBC (4.0-11.0) K/uL RBC (4.50-5.90) M/uL Hgb (13.0-17.0) g/dL Hct (38.0-50.0) % MCV (80.0-98.0) fL MCH (27.0-32.0) pg MCHC (31.0-37.0) g/dL RDW Std Deviation (28.0-62.0) fl RDW Coeff of Gregory (11.0-15.0) % Plt Count (150-400) K/uL MPV (7.40-12.00) fL Neut % (Auto) (48.0-80.0) % Lymph % (Auto) (16.0-40.0) % Rhea % (Auto) (0.0-15.0) % Eos % (Auto) (0.0-7.0) % Baso % (Auto) (0.0-1.5) % Neut # (Auto) (1.4-5.7) K/uL Lymph # (Auto) (0.6-2.4) K/uL Rhea # (Auto) (0.0-0.8) K/uL Eos # (Auto) (0.0-0.7) K/uL Baso # (Auto) (0.0-0.1) K/uL Nucleated RBC % /100WBC Nucleated RBCs # K/uL APTT (18.6-31.3) SEC ABG pH 7.316 L (7.35-7.45) ABG pCO2 71 H (35-45) mmHG ABG pO2 326 H (75-100) mmHG ABG HCO3 36 H (22-26) mEq/L ABG Total CO2 32.2 ABG Base Excess 8.3 H (-2.0-2.0) Sodium (136-146) mmol/L Potassium (3.5-5.1) mmol/L Chloride (98-110) mmol/L Carbon Dioxide (21-31) mmol/L BUN (6.0-23.0) mg/dL Creatinine (0.6-1.5) mg/dL Est Cr Clr Drug Dosing mL/min Estimated GFR (MDRD) ml/min Glucose (60-110) mg/dL POC Glucose (60-110) mg/dL Calcium (8.8-10.8) mg/dL Total Bilirubin (0.1-1.5) mg/dL AST (5-40) IU/L ALT (8-54) IU/L Alkaline Phosphatase (40-150) Troponin I (0.0-0.29) NG/ML Total Protein (6.0-8.0) g/dL Albumin (3.4-4.8) g/dL Globulin (2.0-3.5) g/dL Albumin/Globulin Ratio (1.3-2.8) Med Orders - Current: Current Medications Discontinued Medications Acetaminophen (Tylenol) 650 mg PO Q4H PRN PRN Reason: Pain (Mild 1-3)/fever Albuterol/Ipratropium (Duoneb 3.0-0.5 Mg/3 Ml) 3 ml NEB ONETIME ONE Stop: 11/09/16 11:06 Last Admin: 11/09/16 11:13 Dose: 3 ml Albuterol/Ipratropium (Duoneb 3.0-0.5 Mg/3 Ml) 3 ml NEB Q4HRRT PRN PRN Reason: Shortness Of Breath/wheezing Last Admin: 11/09/16 16:32 Dose: 3 ml Albuterol/Ipratropium (Duoneb 3.0-0.5 Mg/3 Ml) 3 ml NEB Q4HRRT [facility] Last Admin: 11/11/16 14:27 Dose: 3 ml Aspirin (Aspirin) 324 mg PO ONETIME ONE Stop: 11/09/16 10:40 Last Admin: 11/09/16 10:57 Dose: 324 mg Azithromycin (Zithromax) 500 mg PO ONETIME ONE Stop: 11/09/16 11:47 Last Admin: 11/09/16 11:52 Dose: 500 mg Budesonide (Pulmicort) 0.5 mg NEB BIDRT [facility] Last Admin: 11/11/16 05:52 Dose: 0.5 mg Docusate Sodium (Colace) 100 mg PO BID PRN PRN Reason: Constipation Etomidate (Amidate) 40 mg IVPUSH .STK-MED ONE Stop: 11/11/16 19:01 Famotidine (Pepcid) 20 mg IVPUSH ONETIME ONE Stop: 11/09/16 10:40 Last Admin: 11/09/16 10:56 Dose: 20 mg Furosemide (Lasix) 40 mg PO DAILY [facility] Last Admin: 11/10/16 08:50 Dose: 40 mg Furosemide (Lasix) 40 mg IVPUSH NOW ONE Stop: 11/10/16 22:45 Last Admin: 11/10/16 22:53 Dose: 40 mg Furosemide (Lasix) 40 mg IVPUSH BID KANDY Last Admin: 11/11/16 08:08 Dose: 40 mg Heparin Sodium (Porcine) (Heparin Sodium) 4,000 units IVPUSH ONETIME ONE Stop: 11/11/16 18:31 Last Admin: 11/11/16 18:35 Dose: 4,000 units Heparin Sodium (Porcine) (Heparin Sodium) 1,000 - 2,000 units IVPUSH Q6H PRN PRN Reason: HEPARIN DRIP BOLUSES Sodium Chloride (Normal Saline) 1,000 mls @ 999 mls/hr IV STAT ONE Stop: 11/09/16 11:41 Last Admin: 11/09/16 10:56 Dose: 999 mls/hr Azithromycin 500 mg/ Sodium (Chloride) 250 mls @ 250 mls/hr IV ONETIME ONE Stop: 11/09/16 12:32 Last Admin: 11/09/16 11:55 Dose: Not Given Levofloxacin/Dextrose 750 mg/ (Premix) 150 mls @ 100 mls/hr IV ONETIME ONE Stop: 11/09/16 13:07 Last Admin: 11/09/16 11:53 Dose: 100 mls/hr Sodium Chloride (Normal Saline) 1,000 mls @ 100 mls/hr IV ASDIRECTED [facility] Last Admin: 11/10/16 00:40 Dose: 100 mls/hr Levofloxacin/Dextrose 500 mg/ (Premix) 100 mls @ 100 mls/hr IV Q24H [facility] Last Admin: 11/09/16 13:31 Dose: Not Given Levofloxacin/Dextrose 750 mg/ (Premix) 150 mls @ 150 mls/hr IV Q24H KANDY Levofloxacin/Dextrose 750 mg/ (Premix) 150 mls @ 100 mls/hr IV Q24H [facility] Last Admin: 11/11/16 10:20 Dose: 150 mls/hr Vancomycin HCl 1,500 mg/ (Sodium Chloride) 500 mls @ 250 mls/hr IV Q12H [facility] Last Admin: 11/11/16 07:53 Dose: 250 mls/hr Heparin Sod,Pork In 0.45% Nacl (Heparin-1/2ns 25,000 Units/500) 25,000 unit in 500 mls @ 20 mls/hr IV TITRATE KANDY PRN Reason: Protocol Alteplase, Recombinant 100 mg/ (Premix) 0 mls @ 0 mls/hr IV .INFUSION [facility] Last Admin: 11/11/16 19:40 Dose: Not Given Propofol (Diprivan 50 Ml) Confirm Administered Dose 50 mls @ as directed .ROUTE .STK-MED ONE Stop: 11/11/16 18:39 Last Admin: 11/11/16 18:45 Dose: 20 mg Dopamine HCl/Dextrose (Dopamine In D5w 400 Mg/250 Ml) 400 mg in 250 mls @ 21.281 mls/hr IV ASDIRECTED KANDY; 5 MCG/KG/MIN PRN Reason: Protocol Last Admin: 11/11/16 18:35 Dose: 5 mcg/kg/min, 21.281 mls/hr Propofol (Diprivan 100 Ml) 100 mls @ 3.405 mls/hr IV TITRATE KANDY; 5 MCG/KG/MIN PRN Reason: Protocol Sodium Chloride (Normal Saline) 1,000 mls @ 999 mls/hr IV .Bolus ONE Stop: 11/11/16 19:00 Last Admin: 11/11/16 18:00 Dose: 999 mls/hr Alteplase, Recombinant 100 mg/ (Premix) 0 mls @ 0 mls/hr IV .INFUSION ONE Stop: 11/11/16 19:01 Last Admin: 11/11/16 19:05 Dose: 100 mls/hr Lisinopril (Prinivil) 10 mg PO DAILY [facility] Last Admin: 11/11/16 08:08 Dose: 10 mg Midazolam HCl (Versed 1 Mg/Ml) Confirm Administered Dose 2 mg .ROUTE .STK-MED ONE Stop: 11/11/16 18:23 Midazolam HCl (Versed 1 Mg/Ml) 2 mg IVPUSH ONETIME ONE Stop: 11/11/16 18:43 Morphine Sulfate (Morphine) 2 mg IVPUSH Q2H PRN PRN Reason: Pain (severe 7-10) Stop: 11/10/16 12:08 Nicotine (Habitrol) 21 mg TRDERM DAILY [facility] Last Admin: 11/11/16 08:15 Dose: 21 mg Ondansetron HCl (Zofran Odt) 4 mg PO Q4H PRN PRN Reason: nausea, able to take PO Last Admin: 11/11/16 15:27 Dose: 4 mg Oxycodone HCl (Oxycodone) 5 mg PO Q4H PRN PRN Reason: Pain (moderate 4-6) Last Admin: 11/11/16 03:39 Dose: 5 mg Quetiapine Fumarate (Seroquel) 200 mg PO BEDTIME KANDY Quetiapine Fumarate (Seroquel) 200 mg PO BEDTIME [facility] Last Admin: 11/10/16 20:01 Dose: 200 mg Rocuronium [place] (Zemuron) 200 mg .ROUTE .STK-MED ONE Stop: 11/11/16 19:01 Sodium Chloride (Saline Flush) 10 ml FLUSH ASDIRECTED PRN PRN Reason: Keep Vein Open Last Admin: 11/09/16 10:56 Dose: 10 ml Sodium Chloride (Saline Flush) 2.5 ml FLUSH ASDIRECTED PRN PRN Reason: Keep Vein Open Last Admin: 11/09/16 10:56 Dose: 2.5 ml Succinylcholine Chloride (Quelicin) 200 mg .ROUTE .STK-MED ONE Stop: 11/11/16 19:01 Tamsulosin HCl (Flomax) 0.4 mg PO ONETIME KANDY Tamsulosin HCl (Flomax) 0.4 mg PO BEDTIME [facility] Last Admin: 11/10/16 20:01 Dose: 0.4 mg Temazepam (Restoril) 15 mg PO BEDTIME PRN PRN Reason: Sleep Vancomycin HCl (Pharmacy To Dose - Vancomycin) 1 dose .XX ASDIRECTED KANDY *Q Meaningful Use (DIS) - VTE *Q VTE Criteria *Q: - Stroke *Q Stroke Criteria *Q: - AMI *Q AMI Criteria *Q:
--- NOTE | 2016-11-12 15:34 | CR ---
EXAM DATE: 11/11/16 PATIENT'S AGE: 71 Patient: RAFAEL BROWNING Facility: [place], [place] Site . Site : 1945 Study: XRay Chest [id number]/[id number] 6:53:16 PM Ordering Physician: Natalie Soares Final Report: Indication: Intubation Technique: Chest 1 view Comparison: November 10, 2016 Findings/Impression: Endotracheal tube tip terminating 3 cm above the level of the nasir. Stable cardiomegaly. Mild pulmonary cephalization. No focal consolidation or pneumothorax. No significant effusion. Dictated by Dottie Quezada MD @ Nov 11 2016 7:36PM (Electronic Signature) Report Signed by Proxy. ANNIE
== END 2016-11-11 19:45 | DRG 282 ==
LOC: MW.ED 10:37 → MW.MS 11:44 → OBSVTOIN 11-11 09:12 → MW.ICU 11-11 18:25
PROVIDERS: ADMIT Internal Medicine; ATTEND Internal Medicine
PROC: 0BH17EZ Insertion of Endotracheal Airway into Trachea, Via Natural or Artificial Opening (ICD-10-PCS; principal; 2016-11-11)
PROC: 5A1935Z Respiratory Ventilation, Less than 24 Consecutive Hours (ICD-10-PCS; 2016-11-11)
DX: R09.02 Hypoxemia (principal); I21.19 ST elevation (STEMI) myocardial infarction involving other coronary artery of inferior wall; I50.9 Heart failure, unspecified; I10 Essential (primary) hypertension; J44.9 Chronic obstructive pulmonary disease, unspecified; F17.200 Nicotine dependence, unspecified, uncomplicated; Z88.0 Allergy status to penicillin; Z88.5 Allergy status to narcotic agent; Z79.899 Other long term (current) drug therapy
CPT/HCPCS: 36415 ×3; 71010 ×2; 80048; 80053 ×2; 81001; 82150; 83605; 83690; 83880 ×2; 84484; 85025 ×3; 87040 ×2; 87070; 87205; 93005; 94640 ×9; 94664; 96361; 96374; 96375; 99285; A9270 ×12; J1940 ×2; J1956 ×2; J3370 ×3; J7040 ×6; 36410; 36600; 82803; 82962; 85730; 97161-GP; 99284; J0330; J1265; J1644; J2704; J2997

== ENCOUNTER 2018-12-15 08:51 | Emergency (ER) | payer MEDICARE, OTHER ==
[2018-12-15] MEDS ORDERED: Meclizine 25 MG Tab PO ONE (09:20)
--- NOTE | 2018-12-15 09:24 | EDM.PDOC ---
ED HPI GENERAL MEDICAL PROBLEM - General Chief Complaint: ENT Problem Stated Complaint: UNABLE TO HEAR Time Seen by Provider: 12/15/18 09:09 Source of Information: Reports: Patient History Limitations: Reports: No Limitations - History of Present Illness INITIAL COMMENTS - FREE TEXT/NARRATIVE: History of present illness: []Patient states that he woke up this morning and couldn't hear. He stuck his fingers in his ears remove wax. He did not get any out. He feels that he is slightly dizzy but "can walk a straight line". He has no nausea, vomiting, fevers, chills and denies any pain. He is requesting his ears be washed out. Review of systems: As per history of present illness and below otherwise all systems reviewed and negative. Past medical history: As per history of present illness and as reviewed below otherwise noncontributory. Surgical history: As per history of present illness and as reviewed below otherwise noncontributory. Social history: No reported history of drug or alcohol abuse. Family history: As per history of present illness and as reviewed below otherwise noncontributory. Physical exam: General: Well developed, well nourished in NAD HEENT: Atraumatic, normocephalic, pupils reactive, negative for conjunctival pallor or scleral icterus, mucous membranes moist, throat clear, neck supple, nontender, trachea midline. Bilateral TMs with hard cerumen impaction Lungs: Clear to auscultation, breath sounds equal bilaterally, chest nontender. Heart: S1S2, regular, negative for clicks, rubs, or JVD. Abdomen: NABS, Soft, nondistended, nontender. Negative for masses or hepatosplenomegaly. Negative for costovertebral tenderness. Pelvis: Stable nontender. Genitourinary: Deferred. Rectal: Deferred. Extremities: Atraumatic, negative for cords or calf pain. Neurovascular unremarkable. Neuro: Awake, alert, oriented. Cranial nerves II through XII unremarkable. Cerebellum unremarkable. Motor and sensory unremarkable throughout. Exam nonfocal. Skin:warm and dry Diagnostics: Bedside glucose Therapeutics: Meclizine ED Course: stable Impression: Bilateral cerumen impaction Prescriptions: None Plan: Use Debrox as directed follow-up ENT, primary care or at urgent care after ear wax softened and unable to remove. Definitive disposition and diagnosis as appropriate pending reevaluation and review of above. - Related Data Allergies Allergy/AdvReac Type Severity Reaction Status Date / Time morphine Allergy Hives Verified 12/15/18 09:18 Penicillins Allergy Hives Verified 12/15/18 09:18 Home Meds: Home Meds Albuterol [IJD: Ventolin HFA] 2 inh IH Q4H PRN 11/09/16 [History] Aspirin 325 mg PO DAILY 11/09/16 [History] Budesonide/Formoterol [Symbicort 160-4.5 MCG] 2 inh IH BID 11/09/16 [History] Furosemide 60 mg PO DAILY 11/09/16 [History] Lisinopril 10 mg PO DAILY 11/09/16 [History] QUEtiapine Fumarate [Quetiapine Fumarate] 200 mg PO BEDTIME 11/09/16 [History] Tamsulosin [Flomax] 0.4 mg PO DAILY 11/09/16 [History] Past Medical History Cardiovascular History: Reports: Heart Failure, Hypertension Respiratory History: Reports: COPD Gastrointestinal History: Reports: Other (See Below) Other Gastrointestinal History: Appendicitis Neurological History: Reports: Brain Injury - Past Surgical History GI Surgical History: Reports: Other (See Below) Other GI Surgeries/Procedures: Appendectomy Social & Family History - Family History HEENT: Reports: Cataract Cardiac: Reports: Other (See Below) Other Cardiac Family History: stroke Respiratory: Reports: COPD Musculoskeletal: Reports: Arthritis Neurological: Reports: TIA Endocrine/Metabolic: Reports: Diabetes, type II - Caffeine Use Caffeine Use: Reports: Soda ED ROS ENT - Review of Systems Review Of Systems: See Below ED EXAM, ENT - Physical Exam Exam: See Below Course - Vital Signs Last Recorded V/S: Last Vital Signs Temp 97.6 F 12/15/18 09:16 Pulse 82 12/15/18 09:16 Resp 20 12/15/18 09:16 BP 114/63 12/15/18 09:16 Pulse Ox 97 12/15/18 09:16 Departure - Departure Time of Disposition: :23 Disposition: Home, Self-Care 01 Condition: Good Clinical Impression: Impacted cerumen of both ears - Discharge Information *PRESCRIPTION DRUG MONITORING PROGRAM REVIEWED*: Not Applicable *COPY OF PRESCRIPTION DRUG MONITORING REPORT IN PATIENT MILLER: Not Applicable Referrals: PCP,Unknown [Primary Care Provider] - Additional Instructions: The following information is given to patients seen in the emergency department who are being discharged to home. This information is to outline your options for follow-up care. We provide all patients seen in our emergency department with a follow-up referral. The need for follow-up, as well as the timing and circumstances, are variable depending upon the specifics of your emergency department visit. If you don't have a primary care physician on staff, we will provide you with a referral. We always advise you to contact your personal physician following an emergency department visit to inform them of the circumstance of the visit and for follow-up with them and/or the need for any referrals to a consulting specialist. The emergency department will also refer you to a specialist when appropriate. This referral assures that you have the opportunity for follow-up care with a specialist. All of these measure are taken in an effort to provide you with optimal care, which includes your follow-up. Under all circumstances we always encourage you to contact your private physician who remains a resource for coordinating your care. When calling for follow-up care, please make the office aware that this follow-up is from your recent emergency room visit. If for any reason you are refused follow-up, please contact the [facility] Emergency Department at and asked to speak to the emergency department charge nurse. Take meds as directed, follow up with your primary care physician, return to ER if symptoms worsen or change. [facility] [address] [place] [id number]
[2018-12-15 09:41] VITALS: BP 114/78; PULSE 76
== END 2018-12-15 09:39 | disposition home or self-care (01) ==
LOC: MW.ED 08:51
DX: H61.23 Impacted cerumen, bilateral (principal); I11.0 Hypertensive heart disease with heart failure; I50.9 Heart failure, unspecified; J44.9 Chronic obstructive pulmonary disease, unspecified; Z88.5 Allergy status to narcotic agent; Z88.0 Allergy status to penicillin; Z79.82 Long term (current) use of aspirin; Z79.899 Other long term (current) drug therapy
CPT/HCPCS: 82962; 99283; A9270

== ENCOUNTER 2020-11-28 08:46 | Emergency (ER) | payer MEDICARE, OTHER ==
--- NOTE | 2020-11-28 09:04 | EDM.PDOC ---
ED HPI GENERAL MEDICAL PROBLEM - General Chief Complaint: General Stated Complaint: HIGH BP WEAK LIGHTT HEADED Time Seen by Provider: 11/28/20 08:52 Source of Information: Reports: Patient History Limitations: Reports: No Limitations - History of Present Illness INITIAL COMMENTS - FREE TEXT/NARRATIVE: 75-year-old male past medical history CHF on home O2 presents for 1 week of n ausea, vomiting, abdominal discomfort. Patient is also complaining of constipation but did have a bowel movement a couple of days ago. He had not gone for roughly 5 days prior. He denies any chest pain or cough but notes that he has chronic shortness of breath secondary to his CHF. He went to walk-in clinic today and was noted to be hypertensive to systolic 180s and sent to the ER. Patient is concerned that he may have COVID-19. He has not had any fevers. - Related Data Allergies Allergy/AdvReac Type Severity Reaction Status Date / Time morphine Allergy Hives Verified 12/15/18 09:18 Penicillins Allergy Hives Verified 12/15/18 09:18 Home Meds: Home Meds Albuterol [IJD: Ventolin HFA] 2 inh IH Q4H PRN 11/09/16 [History] Aspirin 325 mg PO DAILY 11/09/16 [History] Budesonide/Formoterol [Symbicort 160-4.5 MCG] 2 inh IH BID 11/09/16 [History] Furosemide 60 mg PO DAILY 11/09/16 [History] Lisinopril 10 mg PO DAILY 11/09/16 [History] QUEtiapine Fumarate [Quetiapine Fumarate] 200 mg PO BEDTIME 11/09/16 [History] Tamsulosin [Flomax] 0.4 mg PO DAILY 11/09/16 [History] Past Medical History HEENT History: Reports: None Cardiovascular History: Reports: Heart Failure, Hypertension Respiratory History: Reports: COPD Gastrointestinal History: Reports: Other (See Below) Other Gastrointestinal History: Appendicitis Genitourinary History: Reports: None Musculoskeletal History: Reports: None Neurological History: Reports: Brain Injury Psychiatric History: Reports: None Endocrine/Metabolic History: Reports: None Hematologic History: Reports: None Immunologic History: Reports: None Oncologic (Cancer) History: Reports: None Dermatologic History: Reports: None - Infectious Disease History Infectious Disease History: Reports: None - Past Surgical History GI Surgical History: Reports: Other (See Below) Other GI Surgeries/Procedures: Appendectomy Social & Family History - Family History HEENT: Reports: Cataract Cardiac: Reports: Other (See Below) Other Cardiac Family History: stroke Respiratory: Reports: COPD Musculoskeletal: Reports: Arthritis Neurological: Reports: TIA Endocrine/Metabolic: Reports: Diabetes, type II - Caffeine Use Caffeine Use: Reports: Soda ED ROS GENERAL - Review of Systems Review Of Systems: Comprehensive ROS is negative, except as noted in HPI. ED EXAM, GENERAL - Physical Exam Exam: See Below Exam Limited By: No Limitations General Appearance: Alert, WD/WN, No Apparent Distress Ears: Hearing Grossly Normal Throat/Mouth: Normal Voice, No Airway Compromise Head: Atraumatic, Normocephalic Neck: Normal Inspection Respiratory/Chest: No Respiratory Distress, Lungs Clear, Normal Breath Sounds, No Accessory Muscle Use Cardiovascular: Normal Peripheral Pulses, Regular Rate, Rhythm GI/Abdominal: Soft, Non-Tender Extremities: Normal Inspection Neurological: Alert, Normal Cognition, Normal Gait Psychiatric: Normal Affect, Normal Mood Skin Exam: Warm, Dry, Intact, Normal Color Course - Vital Signs Last Recorded V/S: Last Vital Signs Temp 97.8 F 11/28/20 08:59 Pulse 65 11/28/20 08:59 Resp 20 11/28/20 08:59 BP 138/75 11/28/20 08:59 Pulse Ox 90 L 11/28/20 08:59 - Orders/Labs/Meds Orders: Active Orders 24 hr Category Date Time Status CORONAVIRUS COVID-19 RAMILA [MOLEC] Stat Lab 11/28/20 09:30 Received Meds: Medications Discontinued Medications Generic Name Dose Route Start Last Admin Trade Name Freq PRN Reason Stop Dose Admin Ondansetron HCl 4 mg 11/28/20 09:18 Ondansetron 4 Mg/2 Ml Sdv IVPUSH 11/28/20 09:19 ONETIME ONE Sodium Chloride 10 ml 11/28/20 09:18 Sodium Chloride 0.9% 10 Ml Syringe FLUSH ASDIRECTED PRN Keep Vein Open Sodium Chloride 2.5 ml 11/28/20 09:18 Sodium Chloride 0.9% 2.5 Ml Syringe FLUSH ASDIRECTED PRN Keep Vein Open - Re-Assessments/Exams Free Text/Narrative Re-Assessment/Exam: 11/28/20 09:20 We will get labs including Covid testing. Zofran for nausea 11/28/20 09:29 Patient declines all labs and medications aside from COVID-19 testing. 11/28/20 10:51 Patient would like to leave AGAINST MEDICAL ADVICE as he does not want to wait for his Covid test results. Departure - Departure Time of Disposition: 10:51 Disposition: Against Medical Advice 07 Condition: Good Clinical Impression: Nausea & vomiting Qualifiers: Vomiting type: unspecified Vomiting Intractability: unspecified Qualified Code(s): R11.2 - Nausea with vomiting, unspecified - Discharge Information Instructions: Nausea and Vomiting, Adult Forms: ED Department Discharge Additional Instructions: The following information is given to patients seen in the emergency department who are being discharged to home. This information is to outline your options for follow-up care. We provide all patients seen in our emergency department with a follow-up referral. The need for follow-up, as well as the timing and circumstances, are variable depending upon the specifics of your emergency department visit. If you don't have a primary care physician on staff, we will provide you with a referral. We always advise you to contact your personal physician following an emergency department visit to inform them of the circumstance of the visit and for follow-up with them and/or the need for any referrals to a consulting specialist. The emergency department will also refer you to a specialist when appropriate. This referral assures that you have the opportunity for follow-up care with a specialist. All of these measure are taken in an effort to provide you with optimal care, which includes your follow-up. Under all circumstances we always encourage you to contact your private physician who remains a resource for coordinating your care. When calling for follow-up care, please make the office aware that this follow-up is from your recent emergency room visit. If for any reason you are refused follow-up, please contact the [facility] Emergency Department at and asked to speak to the emergency department charge nurse. Please follow up with your primary care physician. If you do not have a primary care physician, see below: [facility] [address] [place] [id number] [facility] [address] [place] [id number] [facility] [address] [place] [id number] Sepsis Event Note (ED) - Focused Exam Vital Signs: Vital Signs Temp Pulse Resp BP Pulse Ox 11/28/20 08:59 97.8 F 65 20 138/75 90 L - My Orders Last 24 Hours: My Active Orders 11/28/20 09:30 CORONAVIRUS COVID-19 RAMILA [MOLEC] Stat - Assessment/Plan Last 24 Hours: My Active Orders 11/28/20 09:30 CORONAVIRUS COVID-19 RAMILA [MOLEC] Stat
[2020-11-28] MEDS ORDERED: Sodium Chloride 0.9% 2.5 ML Syringe FLUSH PRN (09:18)
[2020-11-28] MEDS ORDERED: Sodium Chloride 0.9% 10 ML Syringe FLUSH PRN (09:18)
[2020-11-28] MEDS ORDERED: Ondansetron 4 MG/2 ML SDV IVPUSH ONE (09:18)
[2020-11-28 09:25] VITALS: BP 138/75; PULSE 65
[2020-11-28] MEDS ORDERED: Ondansetron 4 MG Tab.DIS PO ONE (11:10)
== END 2020-11-28 11:41 | disposition home or self-care (01) ==
LOC: MW.ED 08:46
DX: R11.2 Nausea with vomiting, unspecified (principal); I11.0 Hypertensive heart disease with heart failure; I50.9 Heart failure, unspecified; J44.9 Chronic obstructive pulmonary disease, unspecified; Z88.5 Allergy status to narcotic agent; Z88.0 Allergy status to penicillin; Z79.82 Long term (current) use of aspirin; Z79.899 Other long term (current) drug therapy; Z20.822 Contact with and (suspected) exposure to COVID-19
CPT/HCPCS: 99284; A9270; U0002

== ENCOUNTER 2022-09-05 14:46 | Inpatient (IN) | payer MEDICARE, OTHER ==
[2022-09-05] MEDS ORDERED: Furosemide 40 MG/4 ML VIAL IVPUSH ONE (15:01)
[2022-09-05 15:10] LABS: BASOPHILS PERCENT AUTO 0.1 % (0.0-1.5); EOSINOPHILS PERCENT AUTO 0.2 % (0.0-7.0); HEMATOCRIT 35.1 % (38.0-50.0); HEMOGLOBIN 10.7 g/dL (13.0-17.0); LYMPHOCYTES ABSOLUTE AUTO 1.1 K/uL (0.6-2.4); LYMPHOCYTES PERCENT AUTO 12.3 % (16.0-40.0); MEAN CORPUSCULAR HEMOGLOBIN 32.1 pg (27.0-32.0); MEAN CORPUSCULAR HGB CONC 30.5 g/dL (31.0-37.0); MEAN CORPUSCULAR VOLUME 105.4 fL (80.0-98.0); MONOCYTES ABSOLUTE AUTO 0.7 K/uL (0.0-0.8); MONOCYTES PERCENT AUTO 7.6 % (0.0-15.0); NEUTROPHILS ABSOLUTE AUTO 6.8 K/uL (1.4-5.7); NEUTROPHILS PERCENT AUTO 79.8 % (48.0-80.0); NRBC ABSOLUTE 0 K/uL; PLATELET COUNT,PLT 215 K/uL (150-400); RED BLOOD CELL COUNT 3.33 M/uL (4.50-5.90); WHITE BLOOD CELL COUNT,WBC 8.56 K/uL (4.0-11.0)
[2022-09-05 15:27] LABS: A/G RATIO 0.5 (0.9-1.6); ALBUMIN 2.2 g/dL (3.4-5.0); BILIRUBIN TOTAL 0.7 mg/dL (0.2-1.0); CALCIUM 8.2 mg/dL (8.5-10.1); CREATININE 0.8 mg/dL (0.8-1.3); EST CRCL DRUG DOSING (CG) 83.65 mL/min; MAGNESIUM 1.7 mg/dL (1.8-2.4); POTASSIUM,K 4.4 mmol/L (3.5-5.1); PROTEIN TOTAL,TP 6.4 g/dL (6.4-8.2)
[2022-09-05 15:34] LABS: INR 1.23 (0.86-1.11); PTT,PARTIAL THROMBOPLSTIN TIME 36.2 SEC (23.9-30.7)
[2022-09-05 15:39] LABS: LACTIC ACID 1.6 mmol/L (0.4-2.0)
[2022-09-05] MEDS ORDERED: VANCOmycin 2 GM/400 ML 2 GM in Premix Bag 1 BAG IV ONE (15:45)
[2022-09-05] MEDS: Meropenem 1 GM in Sodium Chloride 0.9% 100 ML IV SCH (16:02)
[2022-09-05 16:04] LABS: APPEARANCE,URINE SLT CLOUDY; BILIRUBIN,URINE NEGATIVE (NEGATIVE); COLOR,URINE YELLOW; GLUCOSE,URINE NEGATIVE (NEGATIVE); KETONES,URINE NEGATIVE (NEGATIVE); LEUKOCYTE ESTERASE,URINE TRACE (NEGATIVE); NITRITE,URINE POSITIVE (NEGATIVE); OCCULT BLOOD,URINE NEGATIVE (NEGATIVE); PROTEIN,URINE NEGATIVE (NEGATIVE)
[2022-09-05 16:12] LABS: BACTERIA,URINE MANY (NEGATIVE); EPITHELIAL CELLS,URINE FEW (NONE-FEW); RBC,URINE 0-2 (0-2/HPF)
[2022-09-05 17:05] VITALS: PULSE 87
[2022-09-05] MEDS ORDERED: Acetaminophen 325 MG Tab PO PRN (17:54)
[2022-09-05] MEDS ORDERED: Ondansetron 4 MG Tab.DIS PO PRN (17:54)
[2022-09-05] MEDS ORDERED: LORazepam 2 MG/ML SDV IM PRN (17:54)
[2022-09-05] MEDS ORDERED: Ondansetron 4 MG/2 ML SDV IVPUSH PRN (17:54)
[2022-09-05] MEDS ORDERED: Polyethylene Glycol 3350 Powder 17 GM Packet PO PRN (17:54)
[2022-09-05] MEDS ORDERED: Furosemide 100 MG/10 ML SDV IVPUSH SCH ×2 (18:00→23:00)
[2022-09-05] MEDS ORDERED: 50% Dextrose in Water 50 ML Syringe IVPUSH PRN (18:09)
[2022-09-05] MEDS ORDERED: Glucagon,Human Recombinant 1 MG Vial IM PRN (18:09)
[2022-09-05] MEDS ORDERED: Meropenem 1 GM in Sodium Chloride 0.9% 100 ML IV SCH (18:45)
[2022-09-05] MEDS: Aspirin 81 MG Tab.Chew PO SCH (19:21)
[2022-09-05 19:42] LABS: BASE EXCESS ARTERIAL 12.9 (-2.0-3.0); BICARBONATE,ARTERIAL 40 mEq/L (22-26); PCO2 ARTERIAL 66 mmHG (35-45); PO2 ARTERIAL 98 mmHG (80-105)
[2022-09-05] MEDS: Insulin Aspart 100 Units/ML 3 ML Pen SUBCUT SCH (23:24)
[2022-09-06] MEDS: Meropenem 1 GM in Sodium Chloride 0.9% 100 ML IV SCH ×3 (01:04→15:19)
[2022-09-06] MEDS: Budesonide/Formoterol 160-4.5 MCG/Puff 6 GM Inhaler INH SCH ×3 (01:13→21:43)
[2022-09-06] MEDS: QUEtiapine 100 MG Tab PO SCH ×2 (01:14→21:07)
[2022-09-06] MEDS: Tamsulosin 0.4 MG Cap.ER PO SCH ×2 (01:14→08:14)
[2022-09-06] MEDS: Furosemide 40 MG/4 ML VIAL IVPUSH SCH ×3 (01:39→16:42)
[2022-09-06 06:16] LABS: BASOPHILS PERCENT AUTO 0.4 % (0.0-1.5); EOSINOPHILS PERCENT AUTO 0.6 % (0.0-7.0); HEMATOCRIT 31.8 % (38.0-50.0); HEMOGLOBIN 9.8 g/dL (13.0-17.0); LYMPHOCYTES ABSOLUTE AUTO 0.8 K/uL (0.6-2.4); LYMPHOCYTES PERCENT AUTO 11.2 % (16.0-40.0); MEAN CORPUSCULAR HEMOGLOBIN 31.9 pg (27.0-32.0); MEAN CORPUSCULAR HGB CONC 30.8 g/dL (31.0-37.0); MEAN CORPUSCULAR VOLUME 103.6 fL (80.0-98.0); MONOCYTES ABSOLUTE AUTO 0.7 K/uL (0.0-0.8); MONOCYTES PERCENT AUTO 10.4 % (0.0-15.0); NEUTROPHILS ABSOLUTE AUTO 5.5 K/uL (1.4-5.7); NEUTROPHILS PERCENT AUTO 77.4 % (48.0-80.0); NRBC ABSOLUTE 0 K/uL; PLATELET COUNT,PLT 197 K/uL (150-400); RED BLOOD CELL COUNT 3.07 M/uL (4.50-5.90); WHITE BLOOD CELL COUNT,WBC 7.12 K/uL (4.0-11.0)
[2022-09-06 06:43] LABS: CALCIUM 7.9 mg/dL (8.5-10.1); CARBON DIOXIDE,CO2 39.5 mmol/L (21.0-32.0); CREATININE 0.7 mg/dL (0.8-1.3); EST CRCL DRUG DOSING (CG) 89.57 mL/min; MAGNESIUM 1.6 mg/dL (1.8-2.4); POTASSIUM,K 3.4 mmol/L (3.5-5.1); TSH ULTRASENSITIVE 0.65 uIU/mL (0.36-3.74)
[2022-09-06] MEDS: Insulin Aspart 100 Units/ML 3 ML Pen SUBCUT SCH ×4 (07:36→21:43)
[2022-09-06] MEDS ORDERED: Potassium Chloride 20 MEQ Tab.ER PO ONE (07:58)
[2022-09-06] MEDS ORDERED: Magnesium Sulfate/Water 2 GM in Premix Bag 1 BAG IV ONE (07:59)
[2022-09-06] MEDS: Aspirin 81 MG Tab.Chew PO SCH (08:14)
[2022-09-06] MEDS ORDERED: Lisinopril 10 MG Tab PO SCH (09:00)
[2022-09-06] MEDS: Spironolactone 25 MG Tab PO SCH ×2 (13:09→21:08)
[2022-09-06] MEDS ORDERED: Benzocaine/Cetylpyridinium/Menthol Lozenge MUCMEM PRN (20:54)
[2022-09-07] MEDS: Meropenem 1 GM in Sodium Chloride 0.9% 100 ML IV SCH ×2 (00:15→07:09)
[2022-09-07] MEDS: Furosemide 40 MG/4 ML VIAL IVPUSH SCH ×3 (01:14→16:54)
[2022-09-07 05:14] LABS: BASOPHILS PERCENT AUTO 0.5 % (0.0-1.5); EOSINOPHILS ABSOLUTE AUTO 0.1 K/uL (0.0-0.7); EOSINOPHILS PERCENT AUTO 1.5 % (0.0-7.0); HEMATOCRIT 31.4 % (38.0-50.0); HEMOGLOBIN 9.7 g/dL (13.0-17.0); LYMPHOCYTES ABSOLUTE AUTO 0.8 K/uL (0.6-2.4); LYMPHOCYTES PERCENT AUTO 13.9 % (16.0-40.0); MEAN CORPUSCULAR HEMOGLOBIN 31.8 pg (27.0-32.0); MEAN CORPUSCULAR HGB CONC 30.9 g/dL (31.0-37.0); MONOCYTES ABSOLUTE AUTO 0.8 K/uL (0.0-0.8); MONOCYTES PERCENT AUTO 13.4 % (0.0-15.0); NEUTROPHILS ABSOLUTE AUTO 4.3 K/uL (1.4-5.7); NEUTROPHILS PERCENT AUTO 70.7 % (48.0-80.0); NRBC ABSOLUTE 0 K/uL; PLATELET COUNT,PLT 227 K/uL (150-400); RED BLOOD CELL COUNT 3.05 M/uL (4.50-5.90); WHITE BLOOD CELL COUNT,WBC 6.05 K/uL (4.0-11.0)
[2022-09-07 05:56] LABS: CALCIUM 7.5 mg/dL (8.5-10.1); CARBON DIOXIDE,CO2 40.7 mmol/L (21.0-32.0); CREATININE 0.7 mg/dL (0.8-1.3); EST CRCL DRUG DOSING (CG) 89.57 mL/min; MAGNESIUM 1.6 mg/dL (1.8-2.4); POTASSIUM,K 3.2 mmol/L (3.5-5.1)
[2022-09-07] MEDS: Insulin Aspart 100 Units/ML 3 ML Pen SUBCUT SCH ×4 (07:19→21:35)
[2022-09-07] MEDS ORDERED: Magnesium Sulfate/Water 2 GM in Premix Bag 1 BAG IV ONE (07:21)
[2022-09-07] MEDS ORDERED: Potassium Chloride 20 MEQ Tab.ER PO ONE (07:21)
[2022-09-07] MEDS: Tamsulosin 0.4 MG Cap.ER PO SCH (08:55)
[2022-09-07] MEDS: Spironolactone 25 MG Tab PO SCH ×2 (08:55→21:35)
[2022-09-07] MEDS: Aspirin 81 MG Tab.Chew PO SCH (08:55)
[2022-09-07] MEDS: Budesonide/Formoterol 160-4.5 MCG/Puff 6 GM Inhaler INH SCH ×2 (09:19→21:36)
[2022-09-07] MEDS ORDERED: Enoxaparin 40 MG/0.4 ML Syringe SUBCUT SCH (10:30)
[2022-09-07] MEDS ORDERED: VANCOmycin 1.75 GM/350 ML 1.75 GM in Premix Bag 1 BAG IV SCH (10:30)
[2022-09-07] MEDS: Azithromycin 500 MG in Sodium Chloride 0.9% 250 ML IV SCH (11:05)
[2022-09-07] MEDS: Heparin Sodium 5,000 Units/ML Vial SUBCUT SCH (11:05)
[2022-09-07 11:08] LABS: BASE EXCESS ARTERIAL 18.3 (-2.0-3.0); BICARBONATE,ARTERIAL 45 mEq/L (22-26); PCO2 ARTERIAL 64 mmHG (35-45); PO2 ARTERIAL 77 mmHG (80-105)
[2022-09-07] MEDS ORDERED: Metolazone 5 MG Tab PO ONE (14:00)
[2022-09-07 14:03] LABS: MAGNESIUM 1.9 mg/dL (1.8-2.4); POTASSIUM,K 3.6 mmol/L (3.5-5.1)
[2022-09-07] MEDS ORDERED: cefTRIAXone 1 GM in Sodium Chloride 0.9% 50 ML IV SCH (17:00)
[2022-09-07] MEDS: QUEtiapine 100 MG Tab PO SCH (21:35)
[2022-09-08] MEDS: Heparin Sodium 5,000 Units/ML Vial SUBCUT SCH ×2 (00:07→10:42)
[2022-09-08] MEDS: Furosemide 40 MG/4 ML VIAL IVPUSH SCH ×2 (03:03→08:54)
[2022-09-08 05:34] LABS: BASOPHILS PERCENT AUTO 0.5 % (0.0-1.5); EOSINOPHILS ABSOLUTE AUTO 0.1 K/uL (0.0-0.7); EOSINOPHILS PERCENT AUTO 1.5 % (0.0-7.0); HEMATOCRIT 34.5 % (38.0-50.0); LYMPHOCYTES ABSOLUTE AUTO 0.9 K/uL (0.6-2.4); LYMPHOCYTES PERCENT AUTO 14.4 % (16.0-40.0); MEAN CORPUSCULAR HEMOGLOBIN 32.4 pg (27.0-32.0); MEAN CORPUSCULAR HGB CONC 31.9 g/dL (31.0-37.0); MEAN CORPUSCULAR VOLUME 101.8 fL (80.0-98.0); MONOCYTES ABSOLUTE AUTO 0.9 K/uL (0.0-0.8); MONOCYTES PERCENT AUTO 14.5 % (0.0-15.0); NEUTROPHILS ABSOLUTE AUTO 4.1 K/uL (1.4-5.7); NEUTROPHILS PERCENT AUTO 69.1 % (48.0-80.0); NRBC ABSOLUTE 0 K/uL; PLATELET COUNT,PLT 259 K/uL (150-400); RED BLOOD CELL COUNT 3.39 M/uL (4.50-5.90); WHITE BLOOD CELL COUNT,WBC 5.98 K/uL (4.0-11.0)
[2022-09-08 05:54] LABS: CALCIUM 8.2 mg/dL (8.5-10.1); CARBON DIOXIDE,CO2 43.1 mmol/L (21.0-32.0); CREATININE 0.7 mg/dL (0.8-1.3); EST CRCL DRUG DOSING (CG) 89.57 mL/min; MAGNESIUM 1.7 mg/dL (1.8-2.4); POTASSIUM,K 3.4 mmol/L (3.5-5.1)
[2022-09-08] MEDS ORDERED: Potassium Chloride 100 ML IV SCH (07:45)
[2022-09-08] MEDS ORDERED: Potassium Chloride 20 MEQ Tab.ER PO ONE (07:47)
[2022-09-08] MEDS ORDERED: Sodium Chloride 0.9% 500 ML IV ONE (07:50)
[2022-09-08] MEDS: Insulin Aspart 100 Units/ML 3 ML Pen SUBCUT SCH ×2 (07:51→11:31)
[2022-09-08] MEDS ORDERED: acetaZOLAMIDE 250 MG Tab PO ONE (08:45)
[2022-09-08] MEDS: Budesonide/Formoterol 160-4.5 MCG/Puff 6 GM Inhaler INH SCH (09:31)
[2022-09-08] MEDS: Tamsulosin 0.4 MG Cap.ER PO SCH (10:08)
[2022-09-08] MEDS: Aspirin 81 MG Tab.Chew PO SCH (10:08)
[2022-09-08] MEDS: Spironolactone 25 MG Tab PO SCH (10:08)
[2022-09-08] MEDS: Azithromycin 500 MG in Sodium Chloride 0.9% 250 ML IV SCH (10:39)
[2022-09-08 11:33] LABS: BASE EXCESS ARTERIAL 16.9 (-2.0-3.0); BICARBONATE,ARTERIAL 43 mEq/L (22-26); PCO2 ARTERIAL 60 mmHG (35-45); PO2 ARTERIAL 72 mmHG (80-105)
[2022-09-08] MEDS ORDERED: fentaNYL/Normal Saline 2,500 MCG in Premix Bag 1 BAG IV PRN (16:19)
[2022-09-08] MEDS ORDERED: propofoL 100 ML IV SCH (16:30)
[2022-09-08] MEDS ORDERED: propofoL 100 ML ONE (16:40)
[2022-09-08] MEDS ORDERED: Etomidate 2 MG/ML 20 ML SDV IVPUSH ONE (16:50)
[2022-09-08] MEDS ORDERED: Succinylcholine 200 MG/10 ML MDV IVPUSH ONE (16:53)
[2022-09-08] MEDS ORDERED: Rocuronium 100 MG/10 ML MDV IVPUSH ONE (16:55)
[2022-09-08 18:44] VITALS: BP 100/33
== END 2022-09-08 18:30 | DRG 208 ==
LOC: MW.ED 14:46 → MW.ICU 16:56
PROVIDERS: ADMIT Internal Medicine; ATTEND Internal Medicine
PROC: 5A09357 Assistance with Respiratory Ventilation, Less than 24 Consecutive Hours, Continuous Positive Airway Pressure (ICD-10-PCS; 2022-09-05)
PROC: 5A1935Z Respiratory Ventilation, Less than 24 Consecutive Hours (ICD-10-PCS; principal; 2022-09-08)
PROC: 0BH17EZ Insertion of Endotracheal Airway into Trachea, Via Natural or Artificial Opening (ICD-10-PCS; 2022-09-08)
DX: J96.01 Acute respiratory failure with hypoxia (principal); R60.1 Generalized edema; Z20.822 Contact with and (suspected) exposure to COVID-19; J44.9 Chronic obstructive pulmonary disease, unspecified; J18.9 Pneumonia, unspecified organism; I50.9 Heart failure, unspecified; Z74.01 Bed confinement status; Z99.81 Dependence on supplemental oxygen; I50.31 Acute diastolic (congestive) heart failure; J44.0 Chronic obstructive pulmonary disease with (acute) lower respiratory infection; Z79.899 Other long term (current) drug therapy; Z86.73 Personal history of transient ischemic attack (TIA), and cerebral infarction without residual deficits; E87.3 Alkalosis; J96.12 Chronic respiratory failure with hypercapnia; I11.0 Hypertensive heart disease with heart failure; K59.09 Other constipation; H91.90 Unspecified hearing loss, unspecified ear; I27.81 Cor pulmonale (chronic); I48.0 Paroxysmal atrial fibrillation; G47.33 Obstructive sleep apnea (adult) (pediatric); E87.6 Hypokalemia; R82.90 Unspecified abnormal findings in urine; D64.9 Anemia, unspecified; E83.42 Hypomagnesemia; Z88.5 Allergy status to narcotic agent; Z88.0 Allergy status to penicillin; Z79.82 Long term (current) use of aspirin; Z79.84 Long term (current) use of oral hypoglycemic drugs; I25.2 Old myocardial infarction; Z87.891 Personal history of nicotine dependence
CPT/HCPCS: 36415; 71045; 80053; 81001; 83605; 83690; 83735; 83880; 84145; 84484; 85025; 85610; 85730; 86850; 86900; 86901; 87040 ×2; 87086; 93005; 94660; 96365; 96375; 99285; J1940; J2185; J3370; J3490; U0002; 36600; 51702; 80048; 80202; 82803; 82947; 84132; 84443; 87070; 87088; 87186; 87205; 94002; A9270-GY; J0330; J0456; J0696; J1644; J2704; J3475; J3480; J7040; J7050